=== PATIENT | female | born 1955 | race Caucasian/White ===

== ENCOUNTER → 2017-11-08 16:52 | Outpatient (CLI) | payer OTHER, BC, SELFPAY ==
--- NOTE | 2017-11-08 16:56 | MRI_ITS ---
STUDY: MRI RIGHT KNEE REASON FOR EXAM: Female, 62 years old. Pain after tripping injury October 16, 2017 TECHNIQUE: Standardized fat and water weighted pulse sequences were obtained in all 3 orthogonal planes. COMPARISON: X-ray October 17, 2017. FINDINGS: Normal medial meniscus. Normal hyaline cartilage of the medial femorotibial compartment. Normal medial femoral condyle and tibial plateau. There is a partial sprain of the MCL with interstitial and periligamentous edema, coronal series 6 image 18/37. Normal distal semimembranosus, gracilis and semitendinosus tendons. There is intra-substance myxoid degeneration of the posterior horn of the lateral meniscus, but without a demonstrated meniscal tear. Normal hyaline cartilage of the lateral femorotibial compartment. There is reactive marrow edema of the anterior lateral tibial plateau, series 4 images /24 and /24. Normal proximal tibiofibular articulation. Normal lateral collateral (fibular) ligament. Normal popliteus tendon. Normal biceps femoris tendon. Normal anterior cruciate ligament (ACL). Normal posterior cruciate ligament (PCL). There is arthrosis of the patellofemoral articulation. There is diffuse, full thickness articular cartilage loss of the patellofemoral compartment. Subchondral edema of the posterior patella Normal medial and lateral patellar retinaculum. Normal quadriceps tendon. There is patellar tendinosis with thickening of the distal tendon. Normal Hoffa's fat pad. There is a small volume joint effusion. The soft tissues are unremarkable. The otherwise visualized osseous structures are unremarkable. MRI/Lower Ext Joint Only (Routine) IMPRESSION: Bone bruising of the lateral tibial plateau consistent with recent injury. Medial collateral ligament sprain consistent with recent injury. Patellofemoral degenerative change. No meniscal tear. Joint effusion. Electronically Signed: Faizan Caldwell MD at 8:55 EST , Service support ,
== END ==
PROVIDERS: Family Provider Family Medicine; PCP Family Medicine; Visit Provider Physician Assistant
DX: S80.01XA Contusion of right knee, initial encounter (principal)
CPT/HCPCS: 73721

== ENCOUNTER → 2017-12-13 16:14 | Outpatient (CLI) | payer BC, SELFPAY ==
[2017-12-13 17:32] LABS: Hemoglobin A1c 5.6 % (4.2-6.3)
[2017-12-13 17:35] LABS: ALB/GLOB Ratio 0.9 RATIO (0.9-2.4); AST(SGOT) 21 U/L (15-37); Alanine Aminotransfer ALT/SGPT 27 U/L (13-56); Albumin, Serum 3.6 g/dL (3.2-5.0); Alkaline Phosphatase 103 U/L (45-117); Anion Gap 7 (5-15); BUN 17 mg/dL (7-18); Calcium,Total 8.3 mg/dL (8.5-10.1); Chloride 105 mmol/L (98-107); Creatinine, Serum 0.63 mg/dL (0.55-1.02); EST Glomerular Filtration Rate 103 mL/min (>60); Est Glom Filt Rate - Afr Amer 124 mL/min (>60); Free T3 2.4 pg/mL (2.18-3.98); Globulin 3.8 g/dL (2.2-4.2); Glucose 79 mg/dL (74-106); Potassium 3.9 mmol/L (3.5-5.1); Protein, Total 7.4 g/dL (6.4-8.2); Sodium Level 140 mmol/L (136-145); Thyroid Stim Hormone (TSH) 3.28 uIU/mL (0.358-3.74)
== END ==
PROVIDERS: Family Provider Family Medicine; PCP Family Medicine; Visit Provider Internal Medicine Endocrinology, Diabetes & Metabolism
DX: E89.0 Postprocedural hypothyroidism (principal); R73.03 Prediabetes
CPT/HCPCS: 36415; 80053; 83036; 84439; 84443; 84481

== ENCOUNTER → 2018-02-18 16:19 | Outpatient (CLI) | payer BC, SELFPAY ==
--- NOTE | 2018-02-18 16:31 | RAD_ITS ---
STUDY: X-RAY - ABDOMEN/PELVIS REASON FOR EXAM: Female, 62 years old. Left upper quadrant discomfort. TECHNIQUE: AP COMPARISON: CT dated January 06, 2016 FINDINGS: Normal visualized lung bases. There is an unremarkable bowel gas pattern. There is no demonstrated free abdominal air. The visualized liver, spleen and kidneys are grossly normal in size and morphology. There are phleboliths within the pelvis. Normal soft tissue structures. Normal visualized osseous structures. RAD/Abdomen Single View IMPRESSION: Nonspecific bowel gas pattern. Electronically Signed: Barbi Campa MD at 12:52 EDT Tel , Service support ,
== END ==
PROVIDERS: Family Provider Family Medicine; PCP Family Medicine; Visit Provider Family Medicine
DX: R10.12 Left upper quadrant pain (principal)
CPT/HCPCS: 74018

== ENCOUNTER → 2018-08-27 07:02 | Outpatient (CLI) | payer BC, SELFPAY ==
[2018-08-27 08:34] LABS: Hemoglobin A1c 5.4 % (4.2-6.3)
[2018-08-27 08:37] LABS: ALB/GLOB Ratio 0.8 RATIO (0.9-2.4); AST(SGOT) 17 U/L (15-37); Alanine Aminotransfer ALT/SGPT 30 U/L (13-56); Albumin, Serum 3.3 g/dL (3.2-5.0); Alkaline Phosphatase 96 U/L (45-117); Anion Gap 9 (5-15); BUN 13 mg/dL (7-18); BUN/Creat Ratio 19.8 RATIO (10-20); Calcium,Total 8.2 mg/dL (8.5-10.1); Chloride 106 mmol/L (98-107); Cholesterol 193 mg/dL (200); Creatinine, Serum 0.66 mg/dL (0.55-1.02); EST Glomerular Filtration Rate 98 mL/min (>60); Est Glom Filt Rate - Afr Amer 118 mL/min (>60); Free T3 2.7 pg/mL (2.18-3.98); Globulin 3.9 g/dL (2.2-4.2); Glucose 84 mg/dL (74-106); High Density Lipoprotein 45 mg/dL; Potassium 4.1 mmol/L (3.5-5.1); Protein, Total 7.2 g/dL (6.4-8.2); Sodium Level 143 mmol/L (136-145); T4 Free Direct 1.17 ng/dL (0.76-1.46); Thyroid Stim Hormone (TSH) 4.44 uIU/mL (0.358-3.74); Triglycerides 151 mg/dL; Very Low Density Lipoprotein 30 mg/dL (5-40)
[2018-08-27 09:58] LABS: Vitamin D,25 Hydroxy 23.4 ng/mL (29.95-100.01)
== END ==
PROVIDERS: Family Provider Family Medicine; PCP Family Medicine; Referring Provider Internal Medicine Endocrinology, Diabetes & Metabolism; Visit Provider Internal Medicine Endocrinology, Diabetes & Metabolism
DX: E89.0 Postprocedural hypothyroidism (principal); R73.03 Prediabetes; E55.9 Vitamin D deficiency, unspecified
CPT/HCPCS: 36415; 80053; 80061; 82306; 83036; 84439; 84443; 84481

== ENCOUNTER → 2019-03-21 07:45 | Outpatient (CLI) | payer BC, SELFPAY ==
[2017-12-09 16:16] VITALS: BMI 36.9
[2019-03-21 09:00] LABS: Hemoglobin A1c 5.6 % (4.2-6.3)
[2019-03-21 09:14] LABS: ALB/GLOB Ratio 0.9 RATIO (0.9-2.4); AST(SGOT) 18 U/L (15-37); Alanine Aminotransfer ALT/SGPT 21 U/L (13-56); Albumin, Serum 3.3 g/dL (3.2-5.0); Alkaline Phosphatase 94 U/L (45-117); Anion Gap 8 (5-15); BUN 16 mg/dL (7-18); BUN/Creat Ratio 24.3 RATIO (10-20); Calcium,Total 8.4 mg/dL (8.5-10.1); Chloride 107 mmol/L (98-107); Creatinine, Serum 0.66 mg/dL (0.55-1.02); EST Glomerular Filtration Rate 97 mL/min (>60); Est Glom Filt Rate - Afr Amer 117 mL/min (>60); Free T3 2.9 pg/mL (2.18-3.98); Globulin 3.7 g/dL (2.2-4.2); Glucose 89 mg/dL (74-106); Potassium 4.3 mmol/L (3.5-5.1); Sodium Level 142 mmol/L (136-145); T4 Free Direct 1.51 ng/dL (0.76-1.46); Thyroid Stim Hormone (TSH) 0.31 uIU/mL (0.358-3.74)
== END ==
PROVIDERS: Family Provider Family Medicine; PCP Family Medicine; Referring Provider Internal Medicine Endocrinology, Diabetes & Metabolism; Visit Provider Internal Medicine Endocrinology, Diabetes & Metabolism
DX: E89.0 Postprocedural hypothyroidism (principal); R73.03 Prediabetes
CPT/HCPCS: 36415; 80053; 83036; 84439; 84443; 84481

== ENCOUNTER → 2019-07-31 16:22 | Outpatient (CLI) | payer BC, SELFPAY ==
[2017-12-09 16:16] VITALS: BMI 36.9
[2019-07-31 17:24] LABS: Hemoglobin A1c 5.4 % (4.2-6.3)
[2019-07-31 17:39] LABS: ALB/GLOB Ratio 0.9 RATIO (0.9-2.4); AST(SGOT) 19 U/L (15-37); Alanine Aminotransfer ALT/SGPT 26 U/L (13-56); Albumin, Serum 3.5 g/dL (3.2-5.0); Alkaline Phosphatase 99 U/L (45-117); Anion Gap 6 (5-15); BUN 19 mg/dL (7-18); BUN/Creat Ratio 25.7 RATIO (10-20); Calcium,Total 8.6 mg/dL (8.5-10.1); Chloride 107 mmol/L (98-107); Creatinine, Serum 0.74 mg/dL (0.55-1.02); EST Glomerular Filtration Rate 85 mL/min (>60); Est Glom Filt Rate - Afr Amer 102 mL/min (>60); Globulin 3.8 g/dL (2.2-4.2); Glucose 86 mg/dL (74-106); Potassium 3.7 mmol/L (3.5-5.1); Protein, Total 7.3 g/dL (6.4-8.2); Sodium Level 140 mmol/L (136-145); T4 Free Direct 1.21 ng/dL (0.76-1.46); Thyroid Stim Hormone (TSH) 2.18 uIU/mL (0.358-3.74)
== END ==
PROVIDERS: Referring Provider Internal Medicine Endocrinology, Diabetes & Metabolism; Visit Provider Internal Medicine Endocrinology, Diabetes & Metabolism
DX: E89.0 Postprocedural hypothyroidism (principal)
CPT/HCPCS: 36415; 80053; 83036; 84439; 84443

== ENCOUNTER → 2019-12-19 07:56 | Outpatient (CLI) | payer BC, SELFPAY ==
[2019-09-17 16:00] VITALS: BMI 36.9
[2019-12-19 08:47] LABS: Vitamin D,25 Hydroxy 49.4 ng/mL
[2019-12-19 08:54] LABS: Thyroid Stim Hormone (TSH) 1.27 uIU/mL (0.358-3.74)
[2019-12-21 20:48] LABS: Anti-Thyroglobulin AB < 1.0 IU/mL (0.0-0.9); Thyroglobulin, Serum Qt. 0.3 ng/mL (1.5-38.5)
== END ==
PROVIDERS: Referring Provider Internal Medicine Endocrinology, Diabetes & Metabolism; Visit Provider Internal Medicine Endocrinology, Diabetes & Metabolism
DX: E55.9 Vitamin D deficiency, unspecified (principal); C73 Malignant neoplasm of thyroid gland; E89.0 Postprocedural hypothyroidism
CPT/HCPCS: 36415; 82306; 84432; 84443; 86800

== ENCOUNTER → 2019-12-31 11:56 | Outpatient (CLI) | payer BC, SELFPAY ==
[2019-09-17 16:00] VITALS: BMI 36.9
--- NOTE | 2019-12-31 11:58 | BI_ITS ---
MAMMOGRAPHY - BILATERAL SCREENING REASON FOR EXAM: Female, 64 years old. Routine annual screening examination. PERTINENT HISTORY: Grandmother with breast cancer. TECHNIQUE: Digital bilateral breast elenita (3D mammographic acquisition) in the CC and MLO projections. 2-D mediolateral oblique (MLO) and craniocaudad (CC) views of both breasts were obtained. CAD: Full Field Digital Mammography with Computer Added Detection was performed. COMPARISON: Comparison is made with prior study dated December 13, 2016 and September 27, 2015. FINDINGS: Breast Composition: The breasts are almost entirely fatty. There are no dominant masses or suspicious calcifications. No other significant abnormalities are identified. There has been no significant change since the prior study. BI/SCREEN MAMM (CAD) W/ELENITA BILAT IMPRESSION: Stable bilateral screening mammogram. Yearly follow-up mammogram recommended. (A) ASSESSMENT CATEGORY: BIRADS Category 1: Negative. A letter regarding these results will be sent to the patient by the facility within 30 days. Approximately 10% of breast cancers are not detected by mammography. A normal mammogram should not delay biopsy of a clinically suspicious abnormality. [id number] Electronically Signed: Lino Naik, at 13:56 EDT , Service support ,
--- NOTE | 2019-12-31 12:20 | BD_ITS ---
STUDY: DUAL ENERGY X-RAY ABSORPTIOMETRY / DXA REASON FOR EXAM: Female, 64 years old. 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 COMPARISON: None. FINDINGS: Lumbar Spine (L1-L4): g/cm2 (1.091) / T-score (-0.6) / Z-score (0.7) Findings are suggestive of normal bone density with a low fracture risk. Left Femur Total: g/cm2 (0.979) / T-score (-0.2) / Z-score (0.8) Left Femoral Neck: g/cm2 (1.032) / T-score (0.0) / Z-score (1.3) Right Femur Total: g/cm2 (1.001) / T-score (-0.1) / Z-score (1.0) Right Femoral Neck: g/cm2 (1.002) / T-score (-0.3) / Z-score (1.1) BD/Dexa Bone Density Study IMPRESSION: The patient is considered normal as outlined below according to World Stanley Organization (WHO) criteria with a low fracture risk. Reference Information: The T-score is the number of standard deviations above or below the standard which is normal for young adults at their peak bone mineral density. The World Health Organization (WHO) interprets the T-scores as follows: Above -1 Normal bone density Between -1 and -2.5 Osteopenia Equal to / or below -2.5 Osteoporosis As a practical clinical guideline, osteopenia may be graded as follows: Mild -1 through -1.5 Moderate -1.6 through -2.0 Severe -2.1 through -2.4 The Z-score is the number of standard deviations above or below age-matched controls. A Z-score of less than -1.5 would be considered abnormal. References: 1. NIH Osteoporosis and Related Bone Diseases http://www.osteo.org 2. International Society for Clinical Densitometry http://www.iscd.org 3. National Osteoporosis Foundation http://www.nof.org Electronically Signed: Lino Naik, at 15:18 EDT , Service support ,
== END ==
PROVIDERS: Referring Provider Obstetrics & Gynecology; Visit Provider Obstetrics & Gynecology
DX: Z12.31 Encounter for screening mammogram for malignant neoplasm of breast (principal); Z13.820 Encounter for screening for osteoporosis
CPT/HCPCS: 77063; 77067; 77080

== ENCOUNTER → 2020-06-14 10:08 | Outpatient (CLI) | payer BC, SELFPAY ==
[2019-09-17 16:00] VITALS: BMI 36.9
[2020-06-14 12:36] LABS: ALB/GLOB Ratio 0.9 RATIO (0.9-2.4); AST(SGOT) 18 U/L (15-37); Alanine Aminotransfer ALT/SGPT 21 U/L (13-56); Albumin, Serum 3.5 g/dL (3.2-5.0); Alkaline Phosphatase 100 U/L (45-117); Anion Gap 3 (5-15); BUN 19 mg/dL (7-18); BUN/Creat Ratio 28.1 RATIO (10-20); Calcium,Total 9.1 mg/dL (8.5-10.1); Chloride 110 mmol/L (98-107); Creatinine, Serum 0.68 mg/dL (0.55-1.02); EST Glomerular Filtration Rate 94 mL/min (>60); Est Glom Filt Rate - Afr Amer 113 mL/min (>60); Globulin 3.8 g/dL (2.2-4.2); Glucose 92 mg/dL (74-106); Potassium 4.3 mmol/L (3.5-5.1); Protein, Total 7.3 g/dL (6.4-8.2); Sodium Level 141 mmol/L (136-145)
[2020-06-14 12:38] LABS: Vitamin B12 407 pg/mL (211-911)
[2020-06-14 12:42] LABS: Hemoglobin A1c 5.5 % (3.8-5.6)
[2020-06-20 00:36] LABS: Vitamin B1, Thiamine 165.8 nmol/L (66.5-200.0)
== END ==
PROVIDERS: PCP Family Medicine; Referring Provider Family Medicine; Visit Provider Family Medicine
DX: G62.9 Polyneuropathy, unspecified (principal)
CPT/HCPCS: 36415; 80053; 82607; 83036; 84425

== ENCOUNTER → 2020-09-15 16:36 | Outpatient (CLI) | payer BC, SELFPAY ==
[2020-09-15 15:59] VITALS: BMI 36.8
[2020-09-15 18:27] LABS: T4 Free Direct 1.32 ng/dL (0.76-1.46); Thyroid Stim Hormone (TSH) 0.24 uIU/mL (0.358-3.74)
[2020-09-19 21:33] LABS: Anti-Thyroglobulin AB < 1.0 IU/mL (0.0-0.9); Thyroglobulin, Serum Qt. 0.2 ng/mL (1.5-38.5)
== END ==
PROVIDERS: PCP Family Medicine; Referring Provider Internal Medicine Endocrinology, Diabetes & Metabolism; Visit Provider Internal Medicine Endocrinology, Diabetes & Metabolism
DX: E89.0 Postprocedural hypothyroidism (principal); C73 Malignant neoplasm of thyroid gland
CPT/HCPCS: 36415; 84432; 84439; 84443; 86800

== ENCOUNTER → 2020-12-14 15:46 | Outpatient (CLI) | payer BC, SELFPAY ==
[2020-09-15 15:59] VITALS: BMI 36.8
[2020-12-14 17:56] LABS: Absolute Lymphocyte Count 2.11 X10^3/uL (0.83-4.51); Absolute Neutrophil Count 4.1 X10^3/uL (2.0-7.7); Basophil# 0.04 X10^3/uL; Basophil% 0.6 % (0-1); Eosinophil# 0.03 X10^3/uL; Eosinophils% 0.4 % (0-5); Hematocrit 41.7 % (37-47); Hemoglobin 13.5 g/dL (12.0-15.0); Lymphocyte # 2.11 X10^3/ul (4.0); Lymphocyte % 31.1 % (19-41); Mean Corp Hgb Conc 32.4 g/dL (32-36); Mean Corpuscular Hgb 27.8 pg (27.0-32.0); Mean Platelet Vol. 12.8 fl (6.2-12.0); Monocyte# 0.52 X10^3/uL; Monocyte% 7.7 % (0-10); NRBC Flagged by Analyzer 0 % (0-5); Neutrophil # 4.07 X10^3/uL (2.7-7.7); Neutrophil % 60.1 % (47-70); Platelet Count 213 K/mm3 (150-450); RBC Distribution Width CV 12.9 % (11.6-14.6); RBC Distribution Width SD 40.2 fl (35.1-43.9); Red Blood Count 4.85 M/mm3 (4.2-5.4); White Blood Count 6.8 K/mm3 (4.4-11.0)
[2020-12-14 18:09] LABS: Vitamin B12 465 pg/mL (211-911); Vitamin D,25 Hydroxy 26.7 ng/mL
[2020-12-14 18:25] LABS: AST(SGOT) 20 U/L (15-37); Alanine Aminotransfer ALT/SGPT 25 U/L (13-56); Albumin, Serum 3.6 g/dL (3.2-5.0); Alkaline Phosphatase 95 U/L (45-117); Anion Gap 6 (5-15); BUN 19 mg/dL (7-18); BUN/Creat Ratio 29.4 RATIO (10-20); Calcium,Total 8.6 mg/dL (8.5-10.1); Chloride 106 mmol/L (98-107); Creatinine, Serum 0.65 mg/dL (0.55-1.02); EST Glomerular Filtration Rate 98 mL/min (>60); Est Glom Filt Rate - Afr Amer 119 mL/min (>60); Globulin 3.7 g/dL (2.2-4.2); Glucose 92 mg/dL (74-106); Potassium 3.9 mmol/L (3.5-5.1); Protein, Total 7.3 g/dL (6.4-8.2); Sodium Level 140 mmol/L (136-145); T4 Free Direct 1.45 ng/dL (0.76-1.46); Thyroid Stim Hormone (TSH) 0.26 uIU/mL (0.358-3.74)
== END ==
PROVIDERS: PCP Family Medicine; Referring Provider Family Medicine; Visit Provider Family Medicine
DX: R53.83 Other fatigue (principal)
CPT/HCPCS: 36415; 80053; 82306; 82607; 84439; 84443; 85025

== ENCOUNTER → 2020-12-19 10:42 | Outpatient (CLI) | payer BC, SELFPAY ==
[2020-09-15 15:59] VITALS: BMI 36.8
--- NOTE | 2020-12-19 10:46 | ECHOD_ITS ---
Reason For Study: MV DISORDERS Procedure This was a 2D Doppler, Color Flow transthoracic echocardiogram. Exam performed in department. Left Ventricle Normal LV size. Left ventricular systolic function is normal. The estimated ejection fraction is 55 %. Stage 1 diastolic dysfunction. No regional wall motion abnormalities noted. Right Ventricle Normal RV size. Normal systolic function. Atria The left atrium is mildly enlarged. Normal right atrium. Mitral Valve Posterior leaflet mitral valve prolapse. Mild (1+) mitral valve insufficiency. Tricuspid Valve Normal tricuspid valve. Mild (1+) tricuspid valve insufficiency. Pulmonary artery systolic pressure is 30 mmHg. Aortic Valve Normal aortic valve. Trisinus/trileaflet aortic valve. Pulmonic Valve Normal pulmonic valve. Great Vessels Normal aortic root. The pulmonary artery is normal size. Normal inferior vena cava. Pericardium/Pleural No pericardial effusion. MMode/2D Measurements & Calculations LVIDd: 5.9 cm IVSd: 0.99 cm Ao root diam: 3.3 cm LVIDs: 4.3 cm LVPWd: 1.1 cm RVDd: 3.2 cm FS: 26.5 % LAV(MOD-bp): 113.5 ml LVAd ap4: 32.1 cm2 SV(MOD-sp4): 60.1 ml LAV(MOD-bp) Indexed: 55.1 ml/m2 EDV(MOD-sp4): 105.9 ml LAV(MOD-sp2): 125.9 ml EDV(sp4-el): 108.0 ml LAV(MOD-sp4): 103.4 ml LVAs ap4: 19.6 cm2 ESV(MOD-sp4): 45.8 ml ESV(sp4-el): 46.5 ml EF(MOD-sp4): 56.8 % EF(sp4-el): 56.9 % SV(sp4-el): 61.5 ml LA A4 area: 28.6 cm2 LA dimension(2D): 4.7 cm RA A4 area: 14.6 cm2 Time Measurements MV dec time: 0.23 sec Doppler Measurements & Calculations MV E max jose: 84.3 cm/sec Lat Peak E' Jose: 5.6 cm/sec Med Peak E' Jose: 8.9 cm/sec MV A max jose: 96.6 cm/sec E/E' lat: 15.2 E/E' med: 9.5 MV E/A: 0.87 PA V2 max: 82.9 cm/sec TR max jose: 249.2 cm/sec TR max P.8 mmHg Interpretation Summary Normal LV size. Left ventricular systolic function is normal. The estimated ejection fraction is 55 %. Stage 1 diastolic dysfunction. Posterior leaflet mitral valve prolapse. Mild (1+) mitral valve insufficiency. Ordering Physician: James Lauren Physician: James Lauren Performed By: Leah Kulkarni, TOOTIE, RVT
== END ==
PROVIDERS: PCP Family Medicine; Referring Provider Family Medicine; Visit Provider Family Medicine
DX: I34.1 Nonrheumatic mitral (valve) prolapse (principal)
CPT/HCPCS: 93306

== ENCOUNTER → 2021-05-09 16:50 | Outpatient (CLI) | payer BC, SELFPAY ==
[2020-09-15 15:59] VITALS: BMI 36.8
[2021-05-09 17:59] LABS: Absolute Lymphocyte Count 2.02 X10^3/uL (0.83-4.51); Absolute Neutrophil Count 4.2 X10^3/uL (2.0-7.7); Basophil# 0.03 X10^3/uL; Basophil% 0.5 % (0-1); Eosinophil# 0.04 X10^3/uL; Eosinophils% 0.6 % (0-5); Hematocrit 41.5 % (37-47); Hemoglobin 13.5 g/dL (12.0-15.0); Lymphocyte # 2.02 X10^3/ul (0.83-4.51); Lymphocyte % 30.4 % (19-41); Mean Corp Hgb Conc 32.5 g/dL (32-36); Mean Corpuscular Hgb 28.1 pg (27.0-32.0); Mean Corpuscular Volume 86.5 fL (81-99); Mean Platelet Vol. 12.2 fl (6.2-12.0); Monocyte# 0.38 X10^3/uL; Monocyte% 5.7 % (0-10); NRBC Flagged by Analyzer 0 % (0-5); Neutrophil # 4.15 X10^3/uL (2.7-7.7); Neutrophil % 62.5 % (47-70); Platelet Count 190 K/mm3 (150-450); RBC Distribution Width CV 13.2 % (11.6-14.6); RBC Distribution Width SD 41.5 fl (35.1-43.9); White Blood Count 6.6 K/mm3 (4.4-11.0)
[2021-05-09 18:46] LABS: Vitamin D,25 Hydroxy 41.5 ng/mL
[2021-05-09 18:54] LABS: AST(SGOT) 17 U/L (15-37); Alanine Aminotransfer ALT/SGPT 28 U/L (13-56); Albumin, Serum 3.7 g/dL (3.2-5.0); Alkaline Phosphatase 91 U/L (45-117); Anion Gap 9 (5-15); BUN 22 mg/dL (7-18); BUN/Creat Ratio 34.9 RATIO (10-20); Calcium,Total 8.9 mg/dL (8.5-10.1); Chloride 106 mmol/L (98-107); Creatinine, Serum 0.63 mg/dL (0.55-1.02); EST Glomerular Filtration Rate 101 mL/min (>60); Est Glom Filt Rate - Afr Amer 122 mL/min (>60); Globulin 3.6 g/dL (2.2-4.2); Glucose 97 mg/dL (74-106); Potassium 3.4 mmol/L (3.5-5.1); Protein, Total 7.3 g/dL (6.4-8.2); Sodium Level 140 mmol/L (136-145); T4 Free Direct 1.26 ng/dL (0.76-1.46); Thyroid Stim Hormone (TSH) 0.45 uIU/mL (0.358-3.74)
== END ==
PROVIDERS: PCP Family Medicine; Visit Provider Family Medicine
DX: E03.9 Hypothyroidism, unspecified (principal); E55.9 Vitamin D deficiency, unspecified
CPT/HCPCS: 36415; 80053; 82306; 84439; 84443; 85025

== ENCOUNTER → 2021-05-30 07:22 | Outpatient (CLI) | payer BC, SELFPAY ==
[2021-05-30 08:29] LABS: AST(SGOT) 19 U/L (15-37); Alanine Aminotransfer ALT/SGPT 25 U/L (13-56); Albumin, Serum 3.6 g/dL (3.2-5.0); Alkaline Phosphatase 85 U/L (45-117); Anion Gap 3 (5-15); BUN 16 mg/dL (7-18); BUN/Creat Ratio 26.5 RATIO (10-20); Calcium,Total 8.5 mg/dL (8.5-10.1); Chloride 110 mmol/L (98-107); EST Glomerular Filtration Rate 106 mL/min (>60); Est Glom Filt Rate - Afr Amer 129 mL/min (>60); Globulin 3.5 g/dL (2.2-4.2); Glucose 87 mg/dL (74-106); Protein, Total 7.1 g/dL (6.4-8.2); Sodium Level 140 mmol/L (136-145)
== END ==
PROVIDERS: PCP Family Medicine; Referring Provider Family Medicine; Visit Provider Family Medicine
DX: E87.6 Hypokalemia (principal)
CPT/HCPCS: 36415; 80053

== ENCOUNTER → 2021-06-26 08:00 | Outpatient (CLI) | payer BC, SELFPAY ==
--- NOTE | 2021-06-26 08:12 | VDLE_ITS ---
Reason For Study: Varicose Veins RIGHT LEFT CFV is compressible, spontaneous, phasic, CFV is compressible, spontaneous, phasic, competent and demonstrates normal competent, and demonstrates normal augmentation. augmentation. FV is compressible, spontaneous, phasic, FV is compressible, spontaneous, phasic, competent and demonstrates normal competent and demonstrates normal augmentation. augmentation. POP V is compressible, spontaneous, phasic, POP V is compressible, spontaneous, phasic, competent and demonstrates normal competent and demonstrates normal augmentation. augmentation. T/P Trunk is compressible. T/P Trunk is compressible. PTV is compressible. PTV is compressible. RT PerV is compressible. LT PerV is compressible. SFJ is INCOMPETENT and measures 0.67cm x 0.64 SFJ is INCOMPETENT and measures 0.98cm x 0.94 cm. cm. SSV proximal calf is competent and measures Lt SSV and Lt GSV abesnt s/p EVLA 2017 0.20cm x 0.23 cm. Rt GSV absent s/p vein stripping x 2. Varicose vein at mid calf is dilated and non Procedure compressible consistent with acute SVT. This is a venous duplex using B-mode, color flow and spectral Doppler. Exam performed in department. A preliminary report was called and/or faxed to [facility]. VL/Venous Duplex US - Sathish Extrem Interpretation Summary Bilateral lower extremities with no DVT. Bilateral saphenofemoral junctions wit h reflux noted. Previous right greater saphenous stripping and left greater and lesser saphenou s ablation. Left calf thrombosed varicose veins noted. Ordering Physician: Lion Carrera Referring Physician: Jaqui Lauren Performed By: Ethel Mccracken, TOOTIE, RVT
== END ==
PROVIDERS: PCP Family Medicine; Referring Provider Surgery Vascular Surgery; Visit Provider Surgery Vascular Surgery
DX: I83.893 Varicose veins of bilateral lower extremities with other complications (principal); M79.89 Other specified soft tissue disorders; M79.606 Pain in leg, unspecified
CPT/HCPCS: 93970

== ENCOUNTER → 2021-08-14 16:16 | Outpatient (CLI) | payer BC, SELFPAY ==
[2020-09-15 15:59] VITALS: BMI 36.8
--- NOTE | 2021-08-14 16:18 | BI_ITS ---
MAMMOGRAPHY - BILATERAL SCREENING REASON FOR EXAM: Female, 65 years old. Routine annual screening examination. PERTINENT HISTORY: Grandmother with breast cancer. TECHNIQUE: Digital bilateral breast elenita (3D mammographic acquisition) in the CC and MLO projections. 2-D mediolateral oblique (MLO) and craniocaudad (CC) views of both breasts were obtained. CAD: Full Field Digital Mammography with Computer Added Detection was performed. COMPARISON: Comparison is made with prior study 12/31/2019 and 12/13/2016. FINDINGS: Breast Composition: The breasts are almost entirely fatty. There are no dominant masses or suspicious calcifications. No other significant abnormalities are identified. There has been no significant change since the prior study. BI/SCRN MAMM (CAD)W/ELENITA BILAT IMPRESSION: Stable bilateral screening mammogram. Yearly follow-up mammogram recommended. (A) ASSESSMENT CATEGORY: BIRADS Category 1: Negative. A letter regarding these results will be sent to the patient by the facility within 30 days. Approximately 10% of breast cancers are not detected by mammography. A normal mammogram should not delay biopsy of a clinically suspicious abnormality. [id number] Electronically Signed: Lino Naik MD at 9:18 EST , Service support ,
== END ==
PROVIDERS: PCP Family Medicine; Referring Provider Obstetrics & Gynecology; Visit Provider Obstetrics & Gynecology
DX: Z12.31 Encounter for screening mammogram for malignant neoplasm of breast (principal); Z80.3 Family history of malignant neoplasm of breast
CPT/HCPCS: 77063; 77067

== ENCOUNTER → 2021-09-08 15:50 | Outpatient (CLI) | payer BC, SELFPAY ==
--- NOTE | 2021-09-08 15:53 | RAD_ITS ---
HISTORY: KNEE PAIN. TECHNIQUE: XR Knee Complete 4 Views or More. Number of images including paperwork: 4. COMPARISON: 10/17/2017. FINDINGS: OSSEOUS STRUCTURES: No acute fracture. Mineralization unremarkable. JOINT SPACES: Maintained. No dislocation. RAD/Knee 4 or More Views IMPRESSION: No acute fracture or dislocation identified in the right knee. at 1622 Reported and signed by: Lakisha Fuller MD Electronically Signed: Lakisha Fuller MD at 16:21 EST Tel , Service support ,
--- NOTE | 2021-09-08 15:53 | RAD_ITS ---
HISTORY: KNEE PAIN. TECHNIQUE: XR Knee Complete 4 Views or More. # of images incl. paperwork: 4. COMPARISON: 09/19/2016. FINDINGS: BONES: No acute fracture identified. Mineralization unremarkable. JOINTS: No dislocation. Mild degenerative change of renal compartment joint space narrowing. RAD/Knee 4 or More Views IMPRESSION: No acute fracture or dislocation identified. Degenerative changes in the left knee. at 1621 Reported and signed by: Lakisha Fuller MD Electronically Signed: Lakisha Fuller MD at 16:20 EST Tel , Service support ,
== END ==
PROVIDERS: PCP Family Medicine; Referring Provider Family Medicine; Visit Provider Family Medicine
DX: M25.569 Pain in unspecified knee (principal)
CPT/HCPCS: 73564

== ENCOUNTER → 2021-09-15 16:10 | Outpatient (CLI) | payer BC, SELFPAY ==
[2021-09-15 17:32] LABS: Cholesterol 192 mg/dL (200); High Density Lipoprotein 44 mg/dL; T4 Free Direct 1.31 ng/dL (0.76-1.46); Thyroid Stim Hormone (TSH) 0.44 uIU/mL (0.358-3.74); Triglycerides 232 mg/dL; Very Low Density Lipoprotein 46 mg/dL (5-40)
[2021-09-18 16:20] LABS: Anti-Thyroglobulin AB < 1.0 IU/mL (0.0-0.9); Thyroglobulin, Serum Qt. 0.1 ng/mL (1.5-38.5)
== END ==
PROVIDERS: PCP Family Medicine; Referring Provider Internal Medicine Endocrinology, Diabetes & Metabolism; Visit Provider Internal Medicine Endocrinology, Diabetes & Metabolism
DX: C73 Malignant neoplasm of thyroid gland (principal); E89.0 Postprocedural hypothyroidism; E78.2 Mixed hyperlipidemia
CPT/HCPCS: 36415; 80061; 84432; 84439; 84443; 86800

== ENCOUNTER → 2022-03-02 | Outpatient (CLI) | payer OTHER, SELFPAY ==
[2022-03-02 12:53] LABS: Hemoglobin A1c 5.6 % (3.8-5.6)
== END | disposition home or self-care (01) ==
LOC: BIMLAB 09:12
PROVIDERS: Nurse Practitioner Family; PCP Family Medicine; Referring Provider Internal Medicine Endocrinology, Diabetes & Metabolism; Visit Provider Internal Medicine Endocrinology, Diabetes & Metabolism
DX: E66.9 Obesity, unspecified (principal); R73.03 Prediabetes
CPT/HCPCS: 36415; 83036

== ENCOUNTER → 2022-09-21 | Outpatient (CLI) | payer OTHER, SELFPAY ==
[2022-09-21 15:58] LABS: T4 Free Direct 1.38 ng/dL (0.76-1.46); Thyroid Stim Hormone (TSH) 0.26 uIU/mL (0.358-3.74)
[2022-09-21 16:20] LABS: Vitamin D,25 Hydroxy 24.9 ng/mL
[2022-09-26 14:12] LABS: Anti-Thyroglobulin AB < 1.0 IU/mL (0.0-0.9); Thyroglobulin, Serum Qt. 0.2 ng/mL (1.5-38.5)
== END | disposition home or self-care (01) ==
LOC: BIMLAB 13:05
PROVIDERS: PCP Family Medicine; Referring Provider Internal Medicine Endocrinology, Diabetes & Metabolism; Visit Provider Internal Medicine Endocrinology, Diabetes & Metabolism
DX: E89.0 Postprocedural hypothyroidism (principal); C73 Malignant neoplasm of thyroid gland; E55.9 Vitamin D deficiency, unspecified
CPT/HCPCS: 36415; 82306; 84432; 84439; 84443; 86800

== ENCOUNTER → 2022-12-13 | Outpatient (CLI) | payer OTHER, SELFPAY ==
--- NOTE | 2022-12-13 09:04 | BI_ITS ---
MAMMOGRAPHY - BILATERAL SCREENING REASON FOR EXAM: Female, 67 years old. Routine annual screening examination. PERTINENT HISTORY: Grandmother with breast cancer. TECHNIQUE: Digital bilateral breast elenita (3D mammographic acquisition) in the CC and MLO projections. 2-D mediolateral oblique (MLO) and craniocaudad (CC) views of both breasts were obtained. CAD: Full Field Digital Mammography with Computer Added Detection was performed. COMPARISON: Comparison is made with prior study August 14, 2021 and December 31, 2019. FINDINGS: Breast Composition: The breasts are almost entirely fatty. There are no dominant masses or suspicious calcifications. No other significant abnormalities are identified. There has been no significant change since the prior study. BI/SCRN MAMM (CAD)W/ELENITA BILAT IMPRESSION: Stable bilateral screening mammogram. Yearly follow-up mammogram recommended. (A) ASSESSMENT CATEGORY: BIRADS Category 1: Negative. A letter regarding these results will be sent to the patient by the facility within 30 days. Approximately 10% of breast cancers are not detected by mammography. A normal mammogram should not delay biopsy of a clinically suspicious abnormality. [id number] Electronically Signed: Lino Naik MD at 10:01 EST ,
== END | disposition home or self-care (01) ==
LOC: OPBI 09:02
PROVIDERS: PCP Family Medicine; Visit Provider Family Medicine
DX: Z12.31 Encounter for screening mammogram for malignant neoplasm of breast (principal)
CPT/HCPCS: 77063; 77067

== ENCOUNTER → 2023-01-15 | Outpatient (CLI) | payer MEDICARE, SELFPAY ==
[2023-01-15 15:20] LABS: Absolute Lymphocyte Count 1.98 X10^3/uL (0.83-4.51); Absolute Neutrophil Count 2.7 X10^3/uL (2.0-7.7); Basophil# 0.04 X10^3/uL; Basophil% 0.8 % (0-1); Eosinophil# 0.04 X10^3/uL; Eosinophils% 0.8 % (0-5); Hematocrit 40.9 % (37-47); Hemoglobin 13.1 g/dL (12.0-15.0); Lymphocyte # 1.98 X10^3/ul (0.83-4.51); Lymphocyte % 38.1 % (19-41); Mean Corpuscular Volume 87.4 fL (81-99); Mean Platelet Vol. 12.7 fl (6.2-12.0); Monocyte# 0.44 X10^3/uL; Monocyte% 8.5 % (0-10); NRBC Flagged by Analyzer 0 % (0-5); Neutrophil # 2.69 X10^3/uL (2.7-7.7); Neutrophil % 51.6 % (47-70); Platelet Count 186 K/mm3 (150-450); RBC Distribution Width CV 13.3 % (11.6-14.6); RBC Distribution Width SD 42.6 fl (35.1-43.9); Red Blood Count 4.68 M/mm3 (4.2-5.4); White Blood Count 5.2 K/mm3 (4.4-11.0)
[2023-01-15 15:42] LABS: Vitamin D,25 Hydroxy 28.6 ng/mL
[2023-01-15 15:55] LABS: AST(SGOT) 20 U/L (15-37); Alanine Aminotransfer ALT/SGPT 25 U/L (13-56); Albumin, Serum 3.5 g/dL (3.2-5.0); Alkaline Phosphatase 90 U/L (45-117); Anion Gap 7 (5-15); BUN 11 mg/dL (7-18); Calcium,Total 8.8 mg/dL (8.5-10.1); Chloride 108 mmol/L (98-107); Cholesterol 202 mg/dL (200); Creatinine, Serum 0.52 mg/dL (0.55-1.02); EST Glomerular Filtration Rate 125 mL/min (>60); Est Glom Filt Rate - Afr Amer 151 mL/min (>60); Globulin 3.4 g/dL (2.2-4.2); Glucose 91 mg/dL (74-106); High Density Lipoprotein 46 mg/dL; Potassium 3.9 mmol/L (3.5-5.1); Protein, Total 6.9 g/dL (6.4-8.2); Sodium Level 138 mmol/L (136-145); Triglycerides 155 mg/dL; Very Low Density Lipoprotein 31 mg/dL (5-40)
== END | disposition home or self-care (01) ==
PROVIDERS: PCP Family Medicine; Referring Provider Family Medicine; Visit Provider Family Medicine
DX: E78.5 Hyperlipidemia, unspecified (principal); E55.9 Vitamin D deficiency, unspecified
CPT/HCPCS: 36415; 80053; 80061; 82306; 85025

== ENCOUNTER → 2023-01-22 | Outpatient (CLI) | payer MEDICARE, SELFPAY ==
--- NOTE | 2023-01-22 09:02 | BD_ITS ---
STUDY: DUAL ENERGY X-RAY ABSORPTIOMETRY / DXA REASON FOR EXAM: Female, 67 years old. 627.8Menopausal postmenopausal BONE DENSITY REASON FOR EXAM TECHNIQUE: Bone Mineral Density (BMD) measurements of lumbar spine and bilateral hips were obtained. COMPARISON: Comparison is made with prior examination dated December 31, 2019. FINDINGS: Lumbar Spine (L1-L4): g/cm2 (0.922) / T-score (-1.2) / Z-score (0.6) Findings are suggestive of osteopenia with a low fracture risk. Left Femur Total: g/cm2 (0.884) / T-score (-0.5) / Z-score (0.8) Left Femoral Neck: g/cm2 (0.795) / T-score (-0.5) / Z-score (1.0) Right Femur Total: g/cm2 (0.990) / T-score (0.4) / Z-score (1.6) Right Femoral Neck: g/cm2 (0.866) / T-score (0.1) / Z-score (1.7) The T-Scores on the most recent prior examination were: Lumbar Spine (L1-L4): There has been worsening of bone density since the previous examination. Left Femur Total: which represents a worsening of 3.2%. Right Femur Total: which represents an improvement of 5.9%. BD/Dexa Bone Density Study IMPRESSION: The patient is considered osteopenic as outlined below according to World [employer] Organization (WHO) criteria with a low fracture risk. There has been worsening of bone density since the previous examination. Reference Information: The T-score is the number of standard deviations above or below the standard which is normal for young adults at their peak bone mineral density. The World Health Organization (WHO) interprets the T-scores as follows: Above -1 Normal bone density Between -1 and -2.5 Osteopenia Equal to / or below -2.5 Osteoporosis As a practical clinical guideline, osteopenia may be graded as follows: Mild -1 through -1.5 Moderate -1.6 through -2.0 Severe -2.1 through -2.4 The Z-score is the number of standard deviations above or below age-matched controls. A Z-score of less than -1.5 would be considered abnormal. References: 1. NIH Osteoporosis and Related Bone Diseases www osteo.org 2. International Society for Clinical Densitometry www iscd.org 3. National Osteoporosis Foundation www nof.org Electronically Signed: Lino Naik MD at 13:51 EDT ,
== END | disposition home or self-care (01) ==
PROVIDERS: PCP Family Medicine; Referring Provider Family Medicine; Visit Provider Family Medicine
DX: Z78.0 Asymptomatic menopausal state (principal)
CPT/HCPCS: 77080

== ENCOUNTER → 2023-03-14 | Outpatient (CLI) | payer MEDICARE, SELFPAY ==
[2023-03-14 12:53] LABS: ALB/GLOB Ratio 0.9 RATIO (0.9-2.4); AST(SGOT) 22 U/L (15-37); Alanine Aminotransfer ALT/SGPT 26 U/L (13-56); Albumin, Serum 3.6 g/dL (3.2-5.0); Alkaline Phosphatase 100 U/L (45-117); Anion Gap 7 (5-15); BUN 16 mg/dL (7-18); BUN/Creat Ratio 23.1 RATIO (10-20); Calcium,Total 9.2 mg/dL (8.5-10.1); Chloride 108 mmol/L (98-107); Creatinine, Serum 0.69 mg/dL (0.55-1.02); EST Glomerular Filtration Rate 90 mL/min (>60); Est Glom Filt Rate - Afr Amer 109 mL/min (>60); Globulin 4.2 g/dL (2.2-4.2); Glucose 82 mg/dL (74-106); Potassium 3.8 mmol/L (3.5-5.1); Protein, Total 7.8 g/dL (6.4-8.2); Sodium Level 139 mmol/L (136-145); Vitamin D,25 Hydroxy 67.3 ng/mL
== END | disposition home or self-care (01) ==
LOC: MTLAB 10:19
PROVIDERS: PCP Family Medicine; Referring Provider Family Medicine; Visit Provider Family Medicine
DX: E55.9 Vitamin D deficiency, unspecified (principal)
CPT/HCPCS: 36415; 80053; 82306

== ENCOUNTER → 2023-03-26 | Outpatient (CLI) | payer MEDICARE, SELFPAY ==
--- NOTE | 2023-03-26 08:53 | US_ITS ---
EXAM: US ABDOMEN LIMITED, RIGHT UPPER QUADRANT CLINICAL INDICATION: RUQ PAIN TECHNIQUE: Real-time ultrasound of the right upper quadrant with image documentation. COMPARISON: No relevant prior studies available. FINDINGS: LIVER: Increased echogenicity of the hepatic parenchyma. No intrahepatic biliary ductal dilation. GALLBLADDER: Unremarkable. No shadowing gallstone. No gallbladder wall thickening is demonstrated. No pericholecystic fluid. Negative sonographic Rosas''s sign. COMMON BILE DUCT: 5 mm. The proximal common bile duct is within normal limits for the patient''s age. PANCREAS: Unremarkable as visualized. No focal abnormality is demonstrated in the pancreas. No pancreatic ductal dilatation. RIGHT KIDNEY: Unremarkable. There is no hydronephrosis. No shadowing calculus. No focal lesion or perinephric collection is demonstrated. US/Abdomen Limited IMPRESSION: No acute findings in the right upper quadrant. Fatty infiltration of the liver. Electronically Signed: Bernard Lopez MD at 10:25 EDT ,
== END | disposition home or self-care (01) ==
LOC: US 08:52
PROVIDERS: PCP Family Medicine; Referring Provider Family Medicine; Visit Provider Family Medicine
DX: R10.11 Right upper quadrant pain (principal)
CPT/HCPCS: 76705

== ENCOUNTER → 2023-07-04 | Outpatient (CLI) | payer MEDICARE, SELFPAY ==
[2023-07-04 10:12] LABS: Absolute Neutrophil Count 3.3 X10^3/uL (2.0-7.7); Basophil# 0.04 X10^3/uL; Basophil% 0.7 % (0-1); Eosinophil# 0.08 X10^3/uL; Eosinophils% 1.4 % (0-5); Hematocrit 42.8 % (37-47); Hemoglobin 13.5 g/dL (12.0-15.0); Mean Corp Hgb Conc 31.5 g/dL (32-36); Mean Corpuscular Hgb 28.1 pg (27.0-32.0); Mean Platelet Vol. 11.9 fl (6.2-12.0); Monocyte% 7.1 % (0-10); NRBC Flagged by Analyzer 0 % (0-5); Neutrophil # 3.29 X10^3/uL (2.7-7.7); Neutrophil % 58.4 % (47-70); Platelet Count 197 K/mm3 (150-450); RBC Distribution Width CV 13.3 % (11.6-14.6); RBC Distribution Width SD 43.7 fl (35.1-43.9); Red Blood Count 4.81 M/mm3 (4.2-5.4); White Blood Count 5.6 K/mm3 (4.4-11.0)
[2023-07-04 10:52] LABS: Vitamin D,25 Hydroxy 45.4 ng/mL
[2023-07-04 11:35] LABS: ALB/GLOB Ratio 0.9 RATIO (0.9-2.4); AST(SGOT) 22 U/L (15-37); Alanine Aminotransfer ALT/SGPT 28 U/L (13-56); Albumin, Serum 3.4 g/dL (3.2-5.0); Alkaline Phosphatase 90 U/L (45-117); Anion Gap 5 (5-15); BUN 12 mg/dL (7-18); BUN/Creat Ratio 18.3 RATIO (10-20); Calcium,Total 8.6 mg/dL (8.5-10.1); Chloride 110 mmol/L (98-107); Cholesterol 188 mg/dL (200); Creatinine, Serum 0.66 mg/dL (0.55-1.02); EST Glomerular Filtration Rate 96 mL/min (>60); Est Glom Filt Rate - Afr Amer 116 mL/min (>60); Globulin 3.8 g/dL (2.2-4.2); Glucose 94 mg/dL (74-106); High Density Lipoprotein 48 mg/dL; Potassium 4.1 mmol/L (3.5-5.1); Protein, Total 7.2 g/dL (6.4-8.2); Sodium Level 141 mmol/L (136-145); T4 Free Direct 1.31 ng/dL (0.76-1.46); Thyroid Stim Hormone (TSH) 0.34 uIU/mL (0.358-3.74); Triglycerides 173 mg/dL; Very Low Density Lipoprotein 35 mg/dL (5-40)
== END | disposition home or self-care (01) ==
LOC: MFPLAB 09:21
PROVIDERS: PCP Family Medicine; Visit Provider Family Medicine
DX: E03.9 Hypothyroidism, unspecified (principal); M85.80 Other specified disorders of bone density and structure, unspecified site; K76.0 Fatty (change of) liver, not elsewhere classified; E78.5 Hyperlipidemia, unspecified
CPT/HCPCS: 36415; 80053; 80061; 82306; 84439; 84443; 85025

== ENCOUNTER → 2023-07-25 | Outpatient (CLI) | payer MEDICARE, SELFPAY ==
--- NOTE | 2023-07-25 10:55 | RAD_ITS ---
INDICATION: pain, fall EXAMINATION/TECHNIQUE: X-RAY - BILATERAL XR Ribs Bilateral 3 Views COMPARISON: None. FINDINGS: No acute fracture or malalignment. Chronic lung changes. No blastic or lytic lesions. Tortuous and calcified thoracic aorta. The heart is borderline enlarged. The soft tissues are unremarkable. RAD/Ribs Bilat 3V No CXR IMPRESSION: No acute radiographic abnormalities. Chronic lung changes. Electronically Signed: Tono Yoo MD at 18:23 EDT ,
== END | disposition home or self-care (01) ==
LOC: MTRAD 10:55
PROVIDERS: PCP Family Medicine; Referring Provider Family Medicine; Visit Provider Family Medicine
DX: R07.81 Pleurodynia (principal)
CPT/HCPCS: 71110

== ENCOUNTER → 2023-08-05 | Outpatient (CLI) | payer MEDICARE, SELFPAY ==
--- NOTE | 2023-08-05 09:25 | US_ITS ---
STUDY: ABDOMINAL ULTRASOUND - RIGHT UPPER QUADRANT REASON FOR VISIT: Female, 67 years old fatty liver TECHNIQUE: Ultrasound evaluation of the right upper quadrant was performed with real-time and static ta-scale imaging. TECHNICAL QUALITY: Adequate. COMPARISON: Comparison is made with prior study dated March 26, 2023. FINDINGS: Liver: The liver measures 13.7 cm. There is increased echogenicity consistent with a mild degree of fatty infiltration. The bile ducts are within normal limits. There is hepatic color flow. The direction of portal flow is hepatopetal. There is no demonstrated mass lesion. Gallbladder: Normal distended gallbladder. The gallbladder wall measures 2.0 mm. There is a negative sonographic Rosas''s sign. There is no pericholecystic fluid. There are no gallstones. Common Bile Duct (C.B.D.): The common bile duct measures 4.3 mm. Pancreas: There is nonvisualization of the pancreas due to overlying bowel gas. Right Kidney: Normal size of the right kidney. The right kidney measures 11 cm x 5.5 cm x 4.6 cm. Normal renal cortex. The right cortex measures 1.4 cm. There is no demonstrated renal mass or cyst. There is no right hydronephrosis. IMPRESSION: Mild degree of fatty infiltration of the liver. Electronically Signed: Lino Naik MD at 15:02 EDT , STUDY: ABDOMINAL ULTRASOUND - ELASTOGRAPHY REASON FOR VISIT: Female, 67 years old. Fatty infiltration of the liver. TECHNIQUE: Liver stiffness measurements were obtained on a Serveron 85 ultrasound machine using a CA 1-7 probe following the SRU guidelines. 3 measurements were obtained using a 2-D-SWE method. TheIQR/M was 13% suggesting a quality data set. TECHNICAL QUALITY: Adequate. COMPARISON: None. FINDINGS: Liver: There is no demonstrated mass lesion. Median liver stiffness measured 6.2 kPa. Abdomen: There is no demonstrated mass lesion. US/Abdomen Limited IMPRESSION: Liver stiffness measures 6.2 kPa compatible with F2-F3 (Mild to moderate liver fibrosis) Metavir score. Electronically Signed: Lino Naik MD at 15:03 EDT ,
== END | disposition home or self-care (01) ==
LOC: US 09:23
PROVIDERS: PCP Family Medicine; Referring Provider Family Medicine; Visit Provider Family Medicine
DX: K76.0 Fatty (change of) liver, not elsewhere classified (principal)
CPT/HCPCS: 76705; 76981

== ENCOUNTER → 2023-09-23 | Outpatient (CLI) | payer MEDICARE, SELFPAY ==
[2023-09-23 12:53] LABS: Thyroid Stim Hormone (TSH) 0.52 uIU/mL (0.358-3.74)
[2023-09-23 14:06] LABS: Hemoglobin A1c 5.2 % (3.8-5.6)
[2023-09-24 16:10] LABS: Anti-Thyroglobulin AB < 1.0 IU/mL (0.0-0.9); Thyroglobulin, Serum Qt. 0.1 ng/mL (1.5-38.5)
== END | disposition home or self-care (01) ==
LOC: BIMLAB 09:18
PROVIDERS: PCP Family Medicine; Referring Provider Internal Medicine Endocrinology, Diabetes & Metabolism; Visit Provider Internal Medicine Endocrinology, Diabetes & Metabolism
DX: R73.03 Prediabetes (principal); C73 Malignant neoplasm of thyroid gland; E89.0 Postprocedural hypothyroidism
CPT/HCPCS: 36415; 83036; 84432; 84439; 84443; 86800

== ENCOUNTER → 2023-10-17 | Outpatient (CLI) | payer MEDICARE, SELFPAY ==
[2023-10-17 13:45] LABS: Absolute Neutrophil Count 3.9 X10^3/uL (2.0-7.7); Basophil# 0.03 X10^3/uL; Basophil% 0.5 % (0-1); Eosinophil# 0.04 X10^3/uL; Eosinophils% 0.6 % (0-5); Hematocrit 42.7 % (37-47); Hemoglobin 14.2 g/dL (12.0-15.0); Lymphocyte % 30.4 % (19-41); Mean Corp Hgb Conc 33.3 g/dL (32-36); Mean Corpuscular Hgb 28.3 pg (27.0-32.0); Mean Corpuscular Volume 85.1 fL (81-99); Mean Platelet Vol. 11.6 fl (6.2-12.0); Monocyte# 0.41 X10^3/uL; Monocyte% 6.5 % (0-10); NRBC Flagged by Analyzer 0 % (0-5); Neutrophil # 3.87 X10^3/uL (2.7-7.7); Neutrophil % 61.8 % (47-70); Platelet Count 214 K/mm3 (150-450); RBC Distribution Width CV 13.1 % (11.6-14.6); RBC Distribution Width SD 40.6 fl (35.1-43.9); Red Blood Count 5.02 M/mm3 (4.2-5.4); White Blood Count 6.3 K/mm3 (4.4-11.0)
[2023-10-17 14:22] LABS: ALB/GLOB Ratio 0.9 RATIO (0.9-2.4); AST(SGOT) 22 U/L (15-37); Alanine Aminotransfer ALT/SGPT 24 U/L (13-56); Albumin, Serum 3.5 g/dL (3.2-5.0); Alkaline Phosphatase 91 U/L (45-117); Anion Gap 6 (5-15); BUN 13 mg/dL (7-18); BUN/Creat Ratio 18.7 RATIO (10-20); Calcium,Total 9.2 mg/dL (8.5-10.1); Chloride 107 mmol/L (98-107); Creatinine, Serum 0.69 mg/dL (0.55-1.02); EST Glomerular Filtration Rate 90 mL/min (>60); Est Glom Filt Rate - Afr Amer 109 mL/min (>60); Globulin 3.9 g/dL (2.2-4.2); Glucose 89 mg/dL (74-106); Magnesium 2.2 mg/dL (1.6-2.6); Potassium 3.9 mmol/L (3.5-5.1); Protein, Total 7.4 g/dL (6.4-8.2); Sodium Level 141 mmol/L (136-145)
== END | disposition home or self-care (01) ==
PROVIDERS: PCP Family Medicine; Referring Provider Internal Medicine Cardiovascular Disease; Visit Provider Internal Medicine Cardiovascular Disease
DX: R06.09 Other forms of dyspnea (principal); I49.3 Ventricular premature depolarization
CPT/HCPCS: 36415; 80053; 83735; 84443; 85025

== ENCOUNTER → 2023-11-12 | Outpatient (CLI) | payer MEDICARE, SELFPAY ==
--- NOTE | 2023-11-12 06:57 | ECHOD_ITS ---
Reason For Study: COLON Procedure This was a 2D Doppler, Color Flow transthoracic echocardiogram. Exam performed in department. Left Ventricle Normal size and thickness. The left ventricular ejection fraction is 60 %. Diastolic function is indeterminate. Right Ventricle Normal right ventricle. Atria The left atrium is severely enlarged. Normal right atrium. Mitral Valve Significant prolapse of the posterior mitral valve leaflet. Moderate mitral valve regurgitation. Recommend cardiac MRI or ISAIAS for further evaluation. Tricuspid Valve Trivial tricuspid valve insufficiency. Normal pulmonary artery pressure. Aortic Valve Aortic sclerosis, no stenosis. Pulmonic Valve The pulmonic valve is not well visualized. Great Vessels Mildly dilated aortic root. Pericardium/Pleural No pericardial effusion. MMode/2D Measurements & Calculations LVIDd: 6.2 cm IVSd: 1.1 cm Ao root diam: 3.8 cm LVIDs: 4.5 cm LVPWd: 1.1 cm RVDd: 3.0 cm FS: 26.5 % LAV(MOD-bp): 112.6 ml LVAd ap4: 39.0 cm2 LVAd ap2: 31.5 cm2 LAV(MOD-bp) Indexed: 53.2 ml/m2 LVLd ap4: 8.9 cm LVLd ap2: 8.0 cm LAV(MOD-sp2): 117.0 ml EDV(MOD-sp4): 148.0 ml EDV(MOD-sp2): 103.6 ml LAV(MOD-sp4): 100.2 ml EDV(sp4-el): 144.7 ml EDV(sp2-el): 104.8 ml LVAs ap4: 25.5 cm2 LVAs ap2: 19.6 cm2 LVLs ap4: 7.7 cm LVLs ap2: 6.4 cm ESV(MOD-sp4): 72.5 ml ESV(MOD-sp2): 50.7 ml ESV(sp4-el): 72.3 ml ESV(sp2-el): 51.0 ml EF(MOD-sp4): 51.0 % EF(MOD-sp2): 51.1 % EF(sp4-el): 50.0 % SV(MOD-sp4): 75.5 ml SV(MOD-sp2): 52.9 ml SV(sp4-el): 72.4 ml LA dimension(2D): 5.3 cm LA A4 area: 29.4 cm2 RA A4 area: 16.0 cm2 TAPSE: 2.8 cm Time Measurements MV dec time: 0.25 sec Doppler Measurements & Calculations MV E max jose: 92.4 cm/sec Lat Peak E' Jose: 6.9 cm/sec Med Peak E' Jose: 7.9 cm/sec MV A max jose: 110.1 cm/sec E/E' lat: 13.5 E/E' med: 11.7 MV E/A: 0.84 MV V2 max: 124.0 cm/sec MV P1/2t max jose: 110.2 cm/sec Ao V2 max: 136.8 cm/sec MV max P.1 mmHg MV P1/2t: 80.2 msec Ao max P.5 mmHg MV V2 mean: 79.7 cm/sec MV dec slope: 402.2 cm/sec2 Ao V2 mean: 95.5 cm/sec MV mean P.8 mmHg Ao mean P.0 mmHg MV V2 VTI: 32.5 cm MVA(P1/2t): 2.7 cm2 Ao V2 VTI: 29.1 cm AV (velocity ratio): 0.86 LV V1 max: 118.0 cm/sec MR max jose: 585.4 cm/sec PA V2 max: 110.4 cm/sec LV V1 max P.6 mmHg MR max P.1 mmHg PA V2 mean: 79.1 cm/sec LV V1 mean P.8 mmHg LV V1 mean: 77.4 cm/sec LV V1 VTI: 24.9 cm TR max jose: 239.4 cm/sec TR max P.9 mmHg ECHO/Echo Complete Interpretation Summary The left ventricular ejection fraction is 60 %. Diastolic function is indeterminate. The left atrium is severely enlarged. Significant prolapse of the posterior mitral valve leaflet. Moderate mitral stevie ve regurgitation. Recommend cardiac MRI or ISAIAS for further evaluation. Mildly dilated aortic root. Ordering Physician: Lien Treviño Referring Physician: James Lauren Performed By: Leah Kulkarni RDCS, RVT
--- OUTSIDE RECORDS SUMMARY | 2023-11-12 06:58 | XMS RPT_ITS | CCD ---
Author Name Unknown Address [address] [place] [address] Organization [facility] Care Team Providers Care Patient Accounting Representative Name Role Phone KAELYN FOREMAN Consulting Unavailable ARTURO WHITFIELD JR Attending Unavailable ARTURO WHITFIELD JR Primary Care Unavailable ARTURO WHITFIELD JR Admitting Unavailable PROVIDER, UNKNOWN Consulting Unavailable PROVIDER, UNKNOWN Consulting Unavailable Kaelyn Foreman MD Primary Care Provider TOMASA PIZANO Attending Unavailable KAELYN FOREMAN Primary Care Unavailable CATHLEEN SILVA Attending Unavailable KAELYN FOREMAN Primary Care Unavailable KAELYN FOREMAN Primary Care Unavailable TOMASA PIZANO Attending Unavailable Allergies Allergy Classification Reported Allergen(s) Allergy Type Date of Onset Reaction(s) Facility (2 sources) Cephalexin; Translations: [CEPHALEXIN] Drug Allergy 3 Itching [facility] (2 sources) Seasonal allergy; Translations: [SEASONAL ALLERGIES] Allergy to substance 4 Itching, Other: See Comments [facility] Medications Completed/Discontinued Medications Medication Drug Class(es) Dates Sig (Normalized) Sig (Original) aspirin 81 mg oral tablet (1 source) Platelet Aggregation Inhibitor, Nonsteroidal Anti-inflammatory Drug take 1 capsule by mouth once daily aspirin 81 mg cap Take 81 mg by mouth once daily. 0 Active Problems Problem Classification Problem Date Documented Date Episodic/Chronic Cancer of thyroid (1 source) Malignant tumor of thyroid gland; Translations: [Malignant neoplasm of thyroid gland] 10-22-2005 Chronic Cancer of thyroid (1 source) History of malignant neoplasm of thyroid; Translations: [Personal history of malignant neoplasm of thyroid] 08-24-2023 Episodic Complications of surgical procedures or medical care (1 source) Postoperative hypothyroidism; Translations: [Postprocedural hypothyroidism] Onset: 5 07-25-2015 Chronic Other diseases of kidney and ureters (1 source) Secondary hyperparathyroidism; Translations: [Secondary hyperparathyroidism of renal origin] Onset: 0 11-28-2009 Chronic Other screening for suspected conditions (not mental disorders or infectious disease) (1 source) Patient encounter status; Translations: [Encounter for screening for malignant neoplasm of colon] 08-24-2023 Episodic Prolapse of female genital organs (2 sources) Uterovaginal prolapse, unspecified; Translations: [Cystocele, midline] Onset: 3 Chronic Rehabilitation care; fitting of prostheses; and adjustment of devices (1 source) Encounter for fitting and adjustment of other specified devices; Translations: [Encounter for fitting and adjustment of pessary] Onset: 3 Chronic Results Test Name Value Interpretation Reference Range Facil ity Vital Signs Date Time Vital Sign Value Performing Clinician Faci lity 08-23-2023 16:01-0500 Body height 165.1 cm Cathleen Silva MD Work Phone: [facility] 08-23-2023 16:01-0500 Body temperature 96.91 [degF] Cathleen Silva MD Work Phone: [facility] 08-23-2023 16:01-0500 Body weight 105.05 kg Cathleen Silva MD Work Phone: [facility] 08-23-2023 16:01-0500 Diastolic blood pressure 82 mm[Hg] Cathleen Silva MD Work Phone: [facility] 08-23-2023 16:01-0500 Heart rate 80 /min Cathleen Silva MD Work Phone: [facility] 08-23-2023 16:01-0500 SaO2% (BldA) [Mass fraction] 98 % Cathleen Silva MD Work Phone: [facility] 08-23-2023 16:01-0500 Systolic blood pressure 116 mm[Hg] Cathleen Silva MD Work Phone: [facility] Encounters Encounter Date Encounter Type Care Provider Facility Start: 09-26-2023 End: 09-27-2023 ambulatory TOMASA PIZANO Facility:[facility] Start: 08-23-2023 End: 08-24-2023 ambulatory CATHLEEN SILVA Facility:[facility] Start: 08-23-2023 End: 08-24-2023 Patient encounter procedure Cathleen Silva MD Work Phone: General Surgery Procedures Date Procedure Procedure Detail Performing Clinician Start: 02-04-2016 Lipid 1996 panel - S juan c or Plasma Cathleen Silva MD Work Phone: Plan of Treatment Date Care Activity Detail Author Start: 06-07-2023 Covid-19 Vaccine () Covid-19 Vaccine () [facility] Start: 2022 Advance Directive Discussion Advance Directive Discussion [facility] Start: 2022 Bone Density Screening Bone Density Screening [facility] Start: 2022 Pneumococcal Vaccine: 65+ (2 - PCV) Pneumococcal Vaccine: 65+ (2 - PCV) [facility] Start: 10-07-2022 Depression Assessment Depression Assessment [facility] Start: 02-03-2021 Lipid 1996 panel - Serum or Plasma Lipid Screening [facility] Start: 09-18-2016 Diabetes Screening Diabetes Screening [facility] Start: 01-05-2014 Mammography Mammogram Screening [facility] Start: 2002 Cologuard (FIT-DNA) Cologuard (FIT-DNA) [facility] Start: 2002 Colonoscopy Colonoscopy [facility] Start: 2002 Colorectal Cancer Screening Colorectal Cancer Screening [facility] Start: [address] Colonography [facility] Start: 2002 Fecal Occult Blood Fecal Occult Blood [facility] Start: 2002 Sigmoidoscopy Sigmoidoscopy [facility] Start: 1976 Urine microalbumin profile DTaP,Tdap,Td Vaccine (1 - Tdap) [facility] Start: 1975 Annual PCP Team Chronic Disease Visit Annual PCP Team Chronic Disease Visit [facility] Start: 1975 Hepatitis C Screening Hepatitis C Screening [facility] Start: 1975 HIV Screening HIV Screening [facility] End: 08-23-2024 Screening colonoscopy COLONOSCOPY SCREENING Endoscopy Routine Screening for colon cancer 1 Occurrences starting 08/23/2023 until 08/23/2024 [facility] Work Phone: Immunizations Immunization Date Immunization Notes Care Provider Neeraj elliott 07-17-2023 respiratory syncytia l virus (RSV) vaccine, adjuvanted (AREXVY) Cathleen Silva MD Work Phone: [facility] 07-17-2023 zoster vaccine recombinant Cathleen Silva MD Work Phone: [facility] 07-04-2023 influenza, seasonal, injectable Cathleen Silva MD Work Phone: [facility] 07-30-2022 influenza, injectabl e, quadrivalent, preservative free Cathleen Silva MD Work Phone: [facility] 08-07-2021 influenza, seasonal, injectable Cathleen Silva MD Work Phone: [facility] 06-13-2020 influenza, injectabl e, quadrivalent, preservative free Cathleen Silva MD Work Phone: [facility] 10-11-2018 zoster vaccine recombinant Cathleen Silva MD Work Phone: [facility] 01-19-2018 pneumococcal polysaccharide vaccine, 23 valent Cathleen Silva MD Work Phone: [facility] 01-19-2018 zoster vaccine recombinant Cathleen Silva MD Work Phone: [facility] 07-31-2017 influenza, seasonal, injectable Cathleen Silva MD Work Phone: [facility] 07-02-2013 influenza, seasonal, injectable Cathleen Silva MD Work Phone: [facility] Payers Date Payer Category Payer Medicare MMO MEDICARE MMO [employer] O [id number] 2022-Present [phone] [address] [place] [address] O [id number] 2022 Unknown [id number] 1955 Unknown [id number] Private Health Insurance [id number] Social History Date Type Detail Facility Start: 08-10-2011 Tobacco smoking stat [facility] Never smoked tobacco [facility] Work Phone: Start: 08-10-2011 Tobacco use and exposure Smokeless tobacco non-user [facility] Work Phone: Start: 08-23-2023 Alcohol intake Current drinke r of alcohol (finding) [facility] Start: 08-08-2023 End: 08-23-2023 History of Social function [facility] Start: 08-08-2023 End: 08-23-2023 Tobacco use panel [facility] National Score (1-100), lower number is lower risk 47 [facility] Start: 1955 Sex Assigned At Not on file [facility] Progress note 09-26-2023 Note Date & Type Note Facility 09-26-2023 Note HNO ID: [id number] Author: Tomasa Pizano APRN.CNP Service: ? Author Type: Nurse Practitioner Type: Progress Notes Filed: 09/26/2023 2:30 PM Note Text: Shirt Sewer offered: Patient declines. PESSARY FITTING NOTE Bria Cabral is a 67 year old who presents for a pessary fitting. General: Well appearing, alert, in no acute distress, well-hydrated, well nourished. Pelvic: Ext. Genitalia: No lesions or other abnormalities Vagina: lesions no Cervix: Normal Urethra: Normal Bimanual: Normal size anteverted uterus Prolapse Noted: Yes Final fitting pessary selected: Ring with support 3 Vaginal sweep: A digital sweep of the vaginal canal was performed by Tomasa Pizano APRN.CNP and it was ascertained that no instruments or other foreign bodies are retained within the cavity. PESSARY FITTING PROCEDURE SUMMARY: Patient tolerated procedure well: Yes Patient able to remove and replace pessary without difficulty: No The patient reported no discomfort and the pessary stayed in placed with ambulating and using the restroom: Yes Patient was able to remove and replace the pessary without difficulty: No HOME GOING PESSARY PLACEMENT: Final fitting pessary selected:Ring with support 3 PLAN: Pessary will need ordered Will call pt when ring is available Tomasa Pizano APRN.CNP [facility] Progress note 08-23-2023 Note Date & Type Note Facility 08-23-2023 Note HNO ID: [id number] Author: Cathleen Silva MD Service: ? Author Type: Physician Type: Progress Notes Filed: 08/24/2023 5:59 PM Note Text: HISTORY AND PHYSICAL Bria Cabral 1955 REFERRING PHYSICIAN: No ref. provider found CHIEF COMPLAINT: Consult (Colonoscopy) HPI: The patient is a 67 year old female referred for endoscopy. Bria notes no history of colon complaints. The patient denies blood in stools, denies abdominal pain, and denies changes in bowel habits. The patient notes no colon cancer in immediate family. The patient has had previous colonoscopy 2004. She does note PONV She has history of thyroid cancer PAST MEDICAL HISTORY Diagnosis Date Heart murmur 09/03/2014 Hyperparathyroidism (HCC) Malignant neoplasm of thyroid gland (HCC) Post-surgical hypothyroidism PAST SURGICAL HISTORY Procedure Laterality Date APPENDECTOMY 10/07/2000 ARTHROTOMY W/MENISCUS REPAIR KNEE Left DANDC, DIAG AND/OR THERAPEUTIC 07/2015 LIG/TRNSXJ FLP TUBE ABDL/VAG APPR UNI/BI PAST SURGICAL HISTORY OF Bilateral 08/07/1980 R varicose veins S BALLOON,UTERINE ABLATION [id number] 07/2015 THYROIDECTOMY TOTAL/COMPLETE 12/30/2001 total for cancer Current Outpatient Medications Medication Sig aspirin 81 mg cap Take 81 mg by mouth once daily. levothyroxine (SYNTHROID) 200 mcg tablet Take 1/2 pill on Sundays, AND 1 pill per day on all other days, total 6.5 pills per week omega-3 fatty acids 1,000 mg cap Take 2 capsules by mouth twice daily. (Patient taking differently: Take 2 g by mouth as needed.) CALCIUM CARBONATE (CALCIUM 600 ORAL) Take 1 tablet by mouth twice daily. CHOLECALCIFEROL (VITAMIN D3) 5,000 UNIT TAB 1 per day multivitamin (MULTIPLE VITAMINS) ORAL Tab Take one(1) tablet daily. peg 3350-Electrolytes (GOLYTELY) 236-22.74-6.74 -5.86 gram suspension Take 4,000 mL by mouth one time only for 1 dose. Refer to printed prep instructions from your provider. No current facility-administered medications for this visit. ALLERGIES: Cephalexin and Seasonal Allergies PERSONAL HISTORY: Social History Tobacco Use Smoking status: Never Smokeless tobacco: Never Vaping Use Vaping Use: Never used Substance Use Topics Alcohol use: Yes Comment: rare Drug use: Never FAMILY HISTORY Problem Relation Age of Onset Kidney failure Mother other (liver failure) Mother Stroke Father Kidney failure Brother Breast Cancer Maternal Grandmother 58 Lung Cancer Maternal Grandfather Diabetes Paternal Grandmother Diabetes Paternal Grandfather Diabetes Maternal Aunt Breast Cancer Other cousin The review of systems data was entered by the nurse and reviewed by me Nursing Notes: Vickie RoblesADRIANA 08/23/2023 4:02 PM Signed REVIEW OF SYSTEMS: General: The patient denies fatigue, denies weight loss, denies weight gain, denies feeling hot, and denies feelings of cold. Eyes: The patient denies glaucoma, denies eye injury/surgery, does not wear glasses or contacts. Ear/Nose/Throat: The patient NOTES allergies, denies hayfever, denies ear infections, and denies bloody noses. Cardiovascular: The patient denies chest pain, denies heart disease, denies high blood pressure,denies cardiac stent, denies prior heart attack, NOTES irregular heart beat, denies high cholesterol, denies poor circulation, denies heart failure, other cardiac issues, denies claudication, denies cold feet, denies peripheral arterial stent. Respiratory: The patient denies tuberculosis, denies pneumonia, denies frequent cough, denies pulmonary embolism, denies shortness of breath, and denies coughing up blood. Gastrointestinal: The patient denies difficulty swallowing, denies acid reflux, denies ulcers, denies vomiting, denies jaundice/hepatitis, denies gallbladder problems, denies black or tarry stools, denies hemorrhoids, denies bleeding from rectum, denies diverticulitis, denies constipation, denies diarrhea, denies loss of stool control, and denies hernias. Kidney/Bladder: The patient denies kidney stones, denies urine infections, and denies bloody urine. Skin: The patient denies a history of skin cancer, denies bleeding/changing moles, and denies a history of skin rash. Neurologic: The patient denies a history of epilepsy/convulsions, denies headaches, denies head/spinal injuries, and denies stroke/TIA. Psychiatric: The patient denies psychiatric medications, denies depression, and denies voices, denies substance abuse. Endocrine: The patient NOTES thyroid disorders, denies diabetes, and denies hormonal problems. Hematologic: The patient denies a history of bruising, denies bleeding, and denies anemia, denies blood clots. Infections: The patient denies a history of measles and mumps, denies rheumatic fever, and denies sexually transmitted diseases. Musculoskeletal: The patient NOTES back pain/injury, NOTES back problems, denies sciatica, NOTES knee/foot trouble, NOTES arthr (more content not included)... [facility] History of Present illness Narrative 08-23-2023 Cathleen Silva MD - 08/23/2023 4:14 PM EST Note Date & Type Note Facility 08-23-2023 History of Presen t illness Narrative HISTORY AND PHYSICAL Bria Cabral 1955 REFERRING PHYSICIAN: No ref. provider found CHIEF COMPLAINT: Consult (Colonoscopy) HPI: The patient is a 67 year old female referred for endoscopy. Bria notes no history of colon complaints. The patient denies blood in stools, denies abdominal pain, and denies changes in bowel habits. The patient notes no colon cancer in immediate family. The patient has had previous colonoscopy 2004. She does note PONV She has history of thyroid cancer PAST MEDICAL HISTORY Diagnosis Date Heart murmur 09/03/2014 Hyperparathyroidism (HCC) Malignant neoplasm of thyroid gland (HCC) Post-surgical hypothyroidism PAST SURGICAL HISTORY Procedure Laterality Date APPENDECTOMY 10/07/2000 ARTHROTOMY W/MENISCUS REPAIR KNEE Left D&C, DIAG AND/OR THERAPEUTIC 07/2015 LIG/TRNSXJ FLP TUBE ABDL/VAG APPR UNI/BI PAST SURGICAL HISTORY OF Bilateral 08/07/1980 R varicose veins S BALLOON,UTERINE ABLATION [id number] 07/2015 THYROIDECTOMY TOTAL/COMPLETE 12/30/2001 total for cancer Current Outpatient Medications Medication Sig aspirin 81 mg cap Take 81 mg by mouth once daily. levothyroxine (SYNTHROID) 200 mcg tablet Take 1/2 pill on Sundays, & 1 pill per day on all other days, total 6.5 pills per week omega-3 fatty acids 1,000 mg cap Take 2 capsules by mouth twice daily. (Patient taking differently: Take 2 g by mouth as needed.) CALCIUM CARBONATE (CALCIUM 600 ORAL) Take 1 tablet by mouth twice daily. CHOLECALCIFEROL (VITAMIN D3) 5,000 UNIT TAB 1 per day multivitamin (MULTIPLE VITAMINS) ORAL Tab Take one(1) tablet daily. peg 3350-Electrolytes (GOLYTELY) 236-22.74-6.74 -5.86 gram suspension Take 4,000 mL by mouth one time only for 1 dose. Refer to printed prep instructions from your provider. No current facility-administered medications for this visit. ALLERGIES: Cephalexin and Seasonal Allergies PERSONAL HISTORY: Social History Tobacco Use Smoking status: Never Smokeless tobacco: Never Vaping Use Vaping Use: Never used Substance Use Topics Alcohol use: Yes Comment: rare Drug use: Never FAMILY HISTORY Problem Relation Age of Onset Kidney failure Mother other (liver failure) Mother Stroke Father Kidney failure Brother Breast Cancer Maternal Grandmother 58 Lung Cancer Maternal Grandfather Diabetes Paternal Grandmother Diabetes Paternal Grandfather Diabetes Maternal Aunt Breast Cancer Other cousin The review of systems data was entered by the nurse and reviewed by me Nursing Notes: Vickie Robles LPN 08/23/2023 4:02 PM Signed REVIEW OF SYSTEMS: General: The patient denies fatigue, denies weight loss, denies weight gain, denies feeling hot, and denies feelings of cold. Eyes: The patient denies glaucoma, denies eye injury/surgery, does not wear glasses or contacts. Ear/Nose/Throat: The patient NOTES allergies, denies hayfever, denies ear infections, and denies bloody noses. Cardiovascular: The patient denies chest pain, denies heart disease, denies high blood pressure,denies cardiac stent, denies prior heart attack, NOTES irregular heart beat, denies high cholesterol, denies poor circulation, denies heart failure, other cardiac issues, denies claudication, denies cold feet, denies peripheral arterial stent. Respiratory: The patient denies tuberculosis, denies pneumonia, denies frequent cough, denies pulmonary embolism, denies shortness of breath, and denies coughing up blood. Gastrointestinal: The patient denies difficulty swallowing, denies acid reflux, denies ulcers, denies vomiting, denies jaundice/hepatitis, denies gallbladder problems, denies black or tarry stools, denies hemorrhoids, denies bleeding from rectum, denies diverticulitis, denies constipation, denies diarrhea, denies loss of stool control, and denies hernias. Kidney/Bladder: The patient denies kidney stones, denies urine infections, and denies bloody urine. Skin: The patient denies a history of skin cancer, denies bleeding/changing moles, and denies a history of skin rash. Neurologic: The patient denies a history of epilepsy/convulsions, denies headaches, denies head/spinal injuries, and denies stroke/TIA. Psychiatric: The patient denies psychiatric medications, denies depression, and denies voices, denies substance abuse. Endocrine: The patient NOTES thyroid disorders, denies diabetes, and denies hormonal problems. Hematologic: The patient denies a history of bruising, denies bleeding, and denies anemia, denies blood clots. Infections: The patient denies a history of measles and mumps, denies rheumatic fever, and denies sexually transmitted diseases. Musculoskeletal: The patient NOTES back pain/injury, NOTES back problems, denies sciatica, NOTES knee/foot trouble, NOTES arthritis, or denies gout. When was patient's last Mammogram screening? 2022 Last Colonoscopy: 2004 Vickie Robles LPN PHYSICAL EXAMINATION: General: The patient is 67 year old female, well nourished, well hydrated in no acute distress. The patient is oriented to time, place, and person. VITALS: Blood pressure 116/82, pulse 80, temperature 36.1 C (96.9 F), height 165.1 cm (5' 5 ), weight 105.1 kg (231 lb 9.6 oz), SpO2 98 %. Body mass index is 38.54 kg/m . Head: Normal cephalic, atraumatic Eyes: pupils are equally round, sclera are clear/anicteric Neck is supple with no tracheal deviation Cardiac: normal heart sounds, regular Respiratory: normal breath sounds, normal respiratory excursion and pattern. Abdominal exam: benign Extremities: no clubbing, cyanosis or edema. Neuro: non focal Psych: normal mood Assessment IMPRESSION: screening for colon cancer PLAN: I have discussed the above with the patient. I have offered colonoscopy , possible biopsies I have explained the procedure to the patient. I have counseled the patient as to the risks of the procedure, including but not limited to: infection, bleeding, injury to any intrabdominal organs such as liver/spleen, perforation of the GI tract, inability to complete the procedure, complications of anesthesia, etc. - the patient understands. The patient wishes to proceed. I have answered all questions to the patient s satisfaction and the patient has no further questions. My clinic staff has educated the patient as to the colon cleansing regimen and I have prescribed Golytely for the colon cleansing solution. The patient will be scheduled for the procedure at [facility]. Diagnoses: (Z12.11) Screening for colon cancer (primary encounter diagnosis) I have confirmed and edited as necessary, the PFSH and ROS obtained by others. Consultation requested by Sharda Reed for an opinion regarding patient's screening for colon ancer. My final recommendations will be communicated back to the requesting physician by way of shared Medical record or letter to requesting physician via US mail. Medical Decision Making: Risk: Low: Low risk from testing/treatment Medical Decision Making Level: 2 - Straightforward Cathleen Silva MD documented in this encounter [facility] Instructions 08-23-2023 Patient Instructions Note Date & Type Note Facility 08-23-2023 Instructions Cathleen Silva MD - 08/23/2023 4:09 PM EST Images from the original note were not included. Bowel Preparation Instructions for: Golytely, Nulytely, Trilyte or Colyte (polyethylene glycol 3350 and electrolytes) IF YOU DO NOT FOLLOW THESE DIRECTIONS, YOUR COLONOSCOPY WILL BE CANCELLED. [place] Instructions: Your bowel must be empty so that your doctor can clearly view your colon. Follow all of the instructions in this handout EXACTLY as they are written. Do NOT eat any solid food the ENTIRE day before your colonoscopy. Drink only clear liquids. Buy your bowel preparation at least 5 days before your colonoscopy. TRANSPORTATION on the Day of Your Exam A responsible person MUST be present with you at Check In prior to your colonoscopy and REMAIN in the endoscopy area until you are discharged. You are NOT ALLOWED to drive, take a taxi or bus, or leave [facility]. If you do not have a responsible fence post driver (family member or friend) with you to take you home, your exam cannot be done with sedation and will be cancelled. Please bring a list of all of your current medications, including any Over-the Counter medications with you. Medications If you take insulin, diabetic medications or blood thinners such as Coumadin (warfarin), Plavix (clopidogrel), Ticlid (ticlopidine hydrochloride), Agrylin (anagrelide), Xarelto (Rivaroxaban), Pradaxa (Dabigatran), Eliquis (Apixaban), and Effient (Prasugrel). You MUST call the doctors who orders those medicines for instructions on altering the dosage before your colonoscopy. All other medications should be taken the day of the exam with a sip of water including ASPIRIN. Five (5) Days Before Your Colonoscopy Do NOT take medicines that stop diarrhea - such as Imodium, Kaopectate, or Pepto Bismol. Do NOT take fiber supplements - such as Metamucil, Citrucel, or Perdiem. Do NOT take products that contain iron - such as multi-vitamins (the label lists what is in the products). Do NOT take Vitamin E. Buy the prescription bowel preparation solution at your local pharmacy or drugstore pharmacy. 09/2019 Bowel Preparation Instructions for: Golytely, Nulytely, Trilyte or Colyte (polyethylene glycol 3350 and electrolytes) Three (3) Days Before Your Colonoscopy Do NOT eat high-fiber foods - such as popcorn, beans, seeds (flax, sunflower, quinoa), multigrain bread, nuts, salad/vegetables, or fresh and dried fruit. One (1) Day Before Your Colonoscopy Only drink clear liquids the ENTIRE DAY before your colonoscopy. Do NOT eat any solid foods. Drink at least 8 ounces of clear liquids every hour after waking up. The clear liquids you can drink include: Clear Liquid (NO RED LIQUIDS) DO NOT DRINK Gatorade, Pedialyte or Powerade Clear broth or bouillon Coffee or tea (no milk or non-dairy creamer) Carbonated and non-carbonated soft drinks Ymnor-Aid or other fruit flavored drinks Strained fruit juices (no pulp) Jell-O, popsicles, hard candy Water Alcohol Milk or non-dairy creamers Noodles or vegetables in soup Juice with pulp Liquid you cannot see through Do not use tobacco/vaping products The bowel preparation solution will be consumed in two parts. Mix the solution the evening before your colonoscopy and refrigerate before drinking. You may add the flavor pack that came with the bowel preparation. Do NOT add ice, sugar or any other flavorings to the solution. Part 1 At 6:00 PM - Evening before your colonoscopy Drink an 8-oz glass of bowel preparation every 10 minutes for a total of 8 glasses. You may continue to drink clear liquids until midnight. Part 2 On the day of your colonoscopy you may drink clear liquids up to (three) 3 hours before your procedure. 4 1/2 hours before your colonoscopy Drink an 8-oz glass of bowel preparation every 10 minutes for a total of 8 glasses. Fifteen (15) minutes later, drink an 8-oz glass of clear liquids every 15 minutes for a total of 2 glasses. You may continue to drink clear liquids up to (three) 3 hours before your exam. 2 09/2019 documented in this encounter [facility] Nurse Note 08-23-2023 Vickie Robles LPN - 08/23/2023 3:59 PM EST Note Date & Type Note Facility 08-23-2023 Nurse Note REVIEW OF SYSTEMS: General: The patient denies fatigue, denies weight loss, denies weight gain, denies feeling hot, and denies feelings of cold. Eyes: The patient denies glaucoma, denies eye injury/surgery, does not wear glasses or contacts. Ear/Nose/Throat: The patient NOTES allergies, denies hayfever, denies ear infections, and denies bloody noses. Cardiovascular: The patient denies chest pain, denies heart disease, denies high blood pressure,denies cardiac stent, denies prior heart attack, NOTES irregular heart beat, denies high cholesterol, denies poor circulation, denies heart failure, other cardiac issues, denies claudication, denies cold feet, denies peripheral arterial stent. Respiratory: The patient denies tuberculosis, denies pneumonia, denies frequent cough, denies pulmonary embolism, denies shortness of breath, and denies coughing up blood. Gastrointestinal: The patient denies difficulty swallowing, denies acid reflux, denies ulcers, denies vomiting, denies jaundice/hepatitis, denies gallbladder problems, denies black or tarry stools, denies hemorrhoids, denies bleeding from rectum, denies diverticulitis, denies constipation, denies diarrhea, denies loss of stool control, and denies hernias. Kidney/Bladder: The patient denies kidney stones, denies urine infections, and denies bloody urine. Skin: The patient denies a history of skin cancer, denies bleeding/changing moles, and denies a history of skin rash. Neurologic: The patient denies a history of epilepsy/convulsions, denies headaches, denies head/spinal injuries, and denies stroke/TIA. Psychiatric: The patient denies psychiatric medications, denies depression, and denies voices, denies substance abuse. Endocrine: The patient NOTES thyroid disorders, denies diabetes, and denies hormonal problems. Hematologic: The patient denies a history of bruising, denies bleeding, and denies anemia, denies blood clots. Infections: The patient denies a history of measles and mumps, denies rheumatic fever, and denies sexually transmitted diseases. Musculoskeletal: The patient NOTES back pain/injury, NOTES back problems, denies sciatica, NOTES knee/foot trouble, NOTES arthritis, or denies gout. When was patient's last Mammogram screening? 2022 Last Colonoscopy: 2004 Vickie Robles LPN documented in this encounter [facility] Progress note 08-08-2023 Note Date & Type Note Facility 08-08-2023 Note HNO ID: [id number] Author: Tomasa Pizano APRN.PHLEBOTOMY TECHNICIAN Service: ? Author Type: Nurse Practitioner Type: Progress Notes Filed: 08/08/2023 12:45 PM Note Text: Shirt Sewer offered: Patient declines. Bria is a 67 year old No obstetric history on file. who presents for an annual gynecologic exam with complaints, of prolapse that is starting to bother her more . Causes trouble with completely emptying the bladder. Postmenopausal: Yes since age 60 HRT use: No. Last Pap: normal 2019 HPV: negative 2019 History of abnormal pap: No Last mammogram: 2022 normal History of abnormal mammogram: No Sexually active: Yes Pain with intercourse: No Postcoital bleeding: No Hot flashes: Yes, occasional Night sweats: No Vaginal dryness: No OB History No obstetric history on file. 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 History Comments: Sexual Activity: Yes; Male Contraception: Tubal Ligation PAST MEDICAL HISTORY Diagnosis Date Heart murmur 09/03/14 Malignant neoplasm of thyroid gland (HCC) PAST SURGICAL HISTORY Procedure Laterality Date APPENDECTOMY 2000 LIG/TRNSXJ FLP TUBE ABDL/VAG APPR UNI/BI PAST SURGICAL HISTORY OF 08/07/80 R varicose veins THYROIDECTOMY TOTAL/COMPLETE 12/30/01 total for cancer FAMILY HISTORY Problem Relation Age of Onset Kidney failure Mother other (liver failure) Mother Stroke Father Kidney failure Brother Breast Cancer Maternal Grandmother Lung Cancer Maternal Grandfather Diabetes Paternal Grandmother Diabetes Paternal Grandfather Diabetes Maternal Aunt Breast Cancer Other cousin SOCIAL HISTORY Social History Tobacco Use Smoking status: Never Smokeless tobacco: Never Vaping Use Vaping Use: Never used Substance Use Topics Alcohol use: Yes Comment: rare Drug use: Never REVIEW OF SYSTEMS Abdomen: No abdominal pain, nausea, vomiting, diarrhea, or constipation. No bloating, early satiety, indigestion, or increased flatulence. Bladder: No dysuria, gross hematuria, urinary frequency, urinary urgency, or incontinence. + Reports prolapse, trouble completely emptying Breast: No breast lumps, nipple d/c, overlying skin changes, redness or skin retraction Allergies and current medication updated:Yes EXAM: BP 128/90 Ht 5' 5 (1.65m) Wt 234 lb (106.1kg) BMI 38.94 kg/(m2). GENERAL: pleasant, female in no apparent distress HEENT: Normocephalic, atraumatic, mucus membranes moist, and no lesions NECK: Supple, full range of motion, no adenopathy, and thyroid normal DERMATOLOGY: Normal, without lesions, non-icteric, and non-hirsute BREAST: soft, non-tender, symmetric, no dominant mass, normal nipple-areolar complex, no lymphadenopathy, and no nipple discharge CHEST: Normal inspiratory effort ABDOMEN: soft, non-tender, and no masses PELVIC: external genitalia normal, normal Bartholin's glands, urethra, Randalia's glands, no vulvar lesions, no cervical lesions, good vaginal support, physiologic discharge present, normal appearing perineal body and perianal region. + cystocele and + uterovaginal prolapse BIMANUAL: uterus normal size, shape and consistency, no adnexal masses, and non-tender RECTOVAGINAL: deferred. NEURO: alert and oriented x3,exam grossly non-focal EXTREMITIES: normal ASSESSMENT/PLAN: 1) Health maintenance: Pap done with HPV. (If normal, last pap). Mammogram ordered. Mammogram done 2022. Nutrition, exercise and routine health maintenance exams reviewed. Calcium/Vitamin D supplementation information provided. Colon cancer screening: patient to discuss with PCP 2) Follow up one year or sooner as needed 3. Colon cancer screening - ICD9: V76.51, ICD10: Z12.11 - CONSULT TO GENERAL SURGERY 4. Cystocele, midline - ICD9: 618.01, ICD10: N81.11 - 1st to 2nd degree - Causing incomplete emptying - Discussed pelvic floor therapy vs pessary vs surgery - Patient would like to try pessary - Plan for fitting 6. Uterovaginal prolapse - ICD9: 618.4, ICD10: N81.4 -1st degree Had BMD screening in 2022 through PCP. Taking Vitamin D and calcium supplementation. Diastolic blood pressure elevated. Recommend follow up with PCP. Sharda Reed APRN.ASHISH Pizano APRN.ASHISH [facility] Evaluation note Note Date & Type Note Facility documented in this encounter [facility] Reason for referral (narrative) Outpatient Procedure (Routine) - Pending Review Note Date & Type Note Facility Referral ID Status Reason Start Date Expiration Date Visits Requested Visits Authorized [id number] Pending Review Auto-Generat ed Referral 3 08/23/2024 1 1 [facility] Summary Purpose Family History No Family History Records FoundNo Family History Records Found Advance Directives No Advanced Directives Records FoundNo Advanced Directives Records Found Additional Source Comments INFORMATION SOURCE (unrecogn ized section and content) DATE CREATED AUTHOR AUTHOR'S ORGANIZ ATION 10/02/2023 [facility] Source Comments (unrecognize d section and content) In the event this informatio n is protected by the Federal Confidentiality of Alcohol and Drug Abuse Patient Records regulations: The Federal rules restrict any use of the information to criminally investigate or prosecute any alcohol or drug abuse patient.[facility] Reason for Visit (unrecogniz ed section and content) Specialty Diagnoses / Procedures Referred By Tony rey Referred To Contact General Surgery Diagnoses Colon cancer screening Procedures CONSULT TO GENERAL SURGERY OFFICE/OUTPATIENT [facility] 60-74 MINUTES Sharda Reed APRN.PHLEBOTOMY TECHNICIAN [address] [place] [address] Referral ID Status Reason Start Date Expiration Date V isits Requested Visits Authorized [id number] Closed PCP Requested Referral 08/08/2023 08/07/2024 1 1 Care Teams (unrecognized sec tion and content) FOR RECORDS PERTAINING TO PATIENTS WHO ARE OR HAVE BEEN ENROLLED IN A CHEMICAL DEPENDENCY/SUBSTANCEABUSE PROGRAM, SOME INFORMATION MAY BE OMITTED. This clinical summary was aggregated from multiple sources. Caution should be exercised in using it in the provision of clinical care. This summary normalizes information from multiple sources, and as a consequence, information in this document may materially change the coding, format and clinical context of patient data. In addition, data may be omitted in some cases. CLINICAL DECISIONS SHOULD BE BASED ON THE PRIMARY CLINICAL RECORDS. [employer] provides no warranty or guarantee of the accuracy or completeness of information in this document.
--- NOTE | 2023-11-12 12:01 | STRESSREP_ITS ---
Stress Test Report Date: 11/12/2023 Procedure: Exercise tolerance test/imaging study Indications: Dyspnea on exertion Consent: Per the patient Procedure: The patient exercised on a Manuel protocol for 5 minutes and 45 seconds achieving a peak heart rate of 139 bpm (90% predicted maximal heart rate) with a peak blood pressure 168/90 mmHg and a peak MET capacity of 7.0 METs. The baseline ECG demonstrated sinus rhythm with frequent PVCs. The peak exercise ECG demonstrated no ischemic changes. Frequent PVCs pretest, during exercise and posttest. No runs.. The functional capacity was considered average. There was no complaint of chest discomfort during exercise or recovery. The examination was discontinued secondary to target heart rate being achieved. The patient was injected with 14.5 mCi of technetium 99m Cardiolite and subsequently rest SPECT Cardiolite nuclear imaging was obtained in the horizontal long, vertical long, and short axis views. Post-exercise, the patient was injected with 44.2 mCi of technetium 99m Cardiolite and subsequently stress SPECT Cardiolite nuclear imaging was obtained in the horizontal long, vertical long, and short axis views. A gated Cardiolite study at peak stress was obtained. Rest and stress SPECT Cardiolite nuclear imaging status post realignment, normalization, and attenuation correction, demonstrates small reversible perfusion defect of the basal septum that may suggest ischemia. There is end systolic thickening and brightening. The gated Cardiolite study demonstrates myocardial thickening and inward wall motion. The reported LVEF is 59%. Impression: 1. Technically adequate (percent predicted maximal heart rate greater than 85%) exercise tolerance test 2. Peak exercise ECG with no ischemic changes 3. Frequent PVCs at baseline, during the test and during recovery. No runs. 4. Rest and stress SPECT Cardiolite nuclear imaging demonstrate small basal septal defect suggestive of ischemia. 5. The gated Cardiolite study reports an LVEF of 59%. This note was generated with [employer] software. It may contain incorrect words, spelling, and punctuation that were not noted in checking the note before signing.
== END | disposition home or self-care (01) ==
LOC: CVS 06:56
PROVIDERS: PCP Family Medicine; Referring Provider Internal Medicine Cardiovascular Disease; Visit Provider Internal Medicine Cardiovascular Disease
DX: I49.3 Ventricular premature depolarization (principal); I47.29 Other ventricular tachycardia; R06.09 Other forms of dyspnea; R94.31 Abnormal electrocardiogram [ECG] [EKG]; I10 Essential (primary) hypertension; I47.19 Other supraventricular tachycardia
CPT/HCPCS: 78452; 93017; 93306; A9500; A4216

== ENCOUNTER 2023-11-27 08:14 | Day surgery (SDC) | payer MEDICARE, SELFPAY ==
--- NOTE | 2023-11-13 15:13 | HP.PCM_ITS ---
History and Physical Date of Admission: 11/26/23 This is a 68-year-old female who presents for a cardiac catheterization, following an abnormal stress test. She has history of sleep apnea. Recently her sleep medicine doctor noticed her to have irregular heart rhythm. Subsequently 7-day event monitoring was done. It showed episodes of atrial tachycardia. Couple of runs of nonsustained ventricular tachycardia were also noted. Patient denies any symptoms of palpitations. No lightheadedness or dizziness. No syncope or presyncope. No chest pain either at rest or with exertion. She does complain of some shortness of breath walking uphill. No orthopnea. No PND. Occasional ankle edema. Patient occasionally indulges in caffeine pills. Also energy drinks. Intake Vital Signs See EMR Allergies See EMR Medications See EMR PFS Medical History Arthritis Contusion of right knee Encounter for screening for malignant neoplasm of colon Gastrocnemius muscle strain H/O malignant neoplasm of thyroid Hypothyroidism Irregular heart beat Knee pain Left knee pain Left leg pain Obesity Osteoarthritis of left knee Postoperative hypothyroidism Pre-diabetes PVCs (premature ventricular contractions) Thyroid carcinoma Thyroid disease Vitamin D deficiency Surgical History H/O knee surgery Hx of appendectomy Hx of thyroidectomy Varicose veins of both lower extremities Family History Father CVA (cerebral vascular accident) Paroxysmal atrial fibrillationBrother Heart valve replacedMother Hypertension Heart disease Social History Smoking Status: Never smoker alcohol intake: current alcohol intake frequency: holidays/special occasions only substance use type: does not use caffeine: Yes (energy drinks) what type of physical activity do you participate in: none ROS Const Const: Positive for daytime sleepiness and difficulty sleeping; Negative for fatigue, weakness, headache(s), frequent falls or excessive sweating Eyes Eyes: Negative for loss of peripheral vision, transient loss of vision, blurry vision, double vision or tunnel vision ENT ENT: Negative for headache(s), dizziness, Nosebleed/epistaxis or balance problems Cardio Chest Pain: No Palpitations: No Edema: Left (d/t arthritis in knee) Muscle aches with walking: None Resp Respiratory: Positive for SOB with activity; Negative for SOB at rest, SOB orthopnea\SOB lying down, Cough or paroxysmal nocturnal dyspnea GI GI: Negative nausea, vomiting, heartburn or black,tarry stools : Negative for hematuria Musc Musc: Negative for muscle aches/ myalgia, muscle weakness, joint pain or balance problems Skin Skin: Negative non-healing lesions, rash or unusual bruising Neuro Neuro: Negative for dizziness, lightheadedness, near syncope, syncope, frequent falls, headache(s), weakness, blurry vision, double vision or lack of coordination Drew Hematologic/Lymphatic: Negative for easy bleeding or easy bruising Endo Endo: Negative for fatigue, excessive sweating or increased thirst/drinking Psych Psych: Negative for anxiety or depression Allergy Allergy/Immunology: Negative for hives and Negative for rash Cardiology Exam Const Appearance: comfortable and no acute distress Nutritional Appearance: well nourished Neck Neck: no JVD Carotids: Negative bruit Chest Auscultation: Bilateral: Clear to Auscultation Cardio Rate: regular rate Rhythm: regular rhythm Heart sounds: S1 normal and S2 normal 2/6 systolic murmur at apex and base. Neuro General: patient alert, patient awake and patient oriented x3 Extremities Lower Extremity Edema: None: Bilateral Supplemental Info Supplemental Information Stress test 11/12/2023: Procedure: Exercise tolerance test/imaging study Indications: Dyspnea on exertion Consent: Per the patient Procedure: The patient exercised on a Manuel protocol for 5 minutes and 45 seconds achieving a peak heart rate of 139 bpm (90% predicted maximal heart rate) with a peak blood pressure 168/90 mmHg and a peak MET capacity of 7.0 METs. The baseline ECG demonstrated sinus rhythm with frequent PVCs. The peak exercise ECG demonstrated no ischemic changes. Frequent PVCs pretest, during exercise and posttest. No runs.. The functional capacity was considered average. There was no complaint of chest discomfort during exercise or recovery. The examination was discontinued secondary to target heart rate being achieved. The patient was injected with 14.5 mCi of technetium 99m Cardiolite and subsequently rest SPECT Cardiolite nuclear imaging was obtained in the horizontal long, vertical long, and short axis views. Post-exercise, the patient was injected with 44.2 mCi of technetium 99m Cardiolite and subsequently stress SPECT Cardiolite nuclear imaging was obtained in the horizontal long, vertical long, and short axis views. A gated Cardiolite study at peak stress was obtained. Rest and stress SPECT Cardiolite nuclear imaging status post realignment, normalization, and attenuation correction, demonstrates small reversible perfusi on defect of the basal septum that may suggest ischemia. There is end systolic thickening and brightening. The gated Cardiolite study demonstrates myocardial thickening and inward wall motion. The reported LVEF is 59%. Impression: 1. Technically adequate (percent predicted maximal heart rate greater than 85%) exercise tolerance test 2. Peak exercise ECG with no ischemic changes 3. Frequent PVCs at baseline, during the test and during recovery. No runs. 4. Rest and stress SPECT Cardiolite nuclear imaging demonstrate small basal septal defect suggestive of ischemia. 5. The gated Cardiolite study reports an LVEF of 59%. Echocardiogram 11/12/2023: Interpretation Summary The left ventricular ejection fraction is 60 %. Diastolic function is indeterminate. The left atrium is severely enlarged. Significant prolapse of the posterior mitral valve leaflet. Moderate mitral valve regurgitation. Recommend cardiac MRI or ISAIAS for further evaluation. Mildly dilated aortic root. ECHOCARDIOGRAM 12/19/20: Interpretation Summary Normal LV size. Left ventricular systolic function is normal. The estimated ejection fraction is 55 %. Stage 1 diastolic dysfunction. Posterior leaflet mitral valve prolapse. Mild (1+) mitral valve insufficiency. 7 DAY EVENT MONITOR 08/2723-09/09/23: FINDINGS SUMMARY - Predominant rhythm: NSR - Atrial Tachycardia (AT) 18 episodes, Longest 15 beats @ Avg 115 bpm up to 160 bpm, Fastest 6 beats @Avg 146 bpm up to 183 bpm - Ventricular Tachycardia (VT) 433 episodes, Longest/Fastest 12 beats @ Avg 132 bpm up to 165 bpm - Accelerated Idioventricular Rhythm (AIVR) - Ectopic Atrial Rhythm (EAR) - Sinus P-wave terminal delay was observed; consider left atrial disease - Junctional Escape Beats (DAMIÁN) - PAC <0.1% - PVC 8% BLOOD FLOW SCREENING 11/30/22: INTERPRETATION SUMMARY Normal carotid artery screening (0-15% narrowing). Normal aortic ultrasound exam. The ankle/ branchial index is normal (1.0 or greater). Labs: LDL Cholesterol 105 mg/dL (0-130) HDL Cholesterol 48 mg/dL (40-) Cholesterol 188 mg/dL (200) Triglycerides 173 mg/dL (-199) Assessment and Plan Assessment and Plan (1) Nonsustained ventricular tachycardia: Status: Chronic Plan: Patient has a history of nonsustained ventricular tachycardia. She is asymptomatic at this time. Her most recent stress test from 11/12/2023 was abn ormal. Would like to proceed with a cardiac catheterization to further assess this. Depending on results, further recommendations will be made. (2) Abnormal Stress Test Patient's stress test from 11/12/2023 was abnormal, and demonstrated small basal septal defect suggestive of ischemia. Will proceed with a cardiac catheterization to further assess this. Depending on results, further recommenda tions will be made.
[2023-11-14 10:31] LABS: Absolute Lymphocyte Count 2.02 X10^3/uL (0.83-4.51); Absolute Neutrophil Count 3.6 X10^3/uL (2.0-7.7); Basophil# 0.03 X10^3/uL; Basophil% 0.5 % (0-1); Eosinophil# 0.07 X10^3/uL; Eosinophils% 1.2 % (0-5); Hematocrit 40.9 % (37-47); Hemoglobin 13.1 g/dL (12.0-15.0); Lymphocyte # 2.02 X10^3/ul (0.83-4.51); Lymphocyte % 33.4 % (19-41); Mean Corpuscular Volume 87.4 fL (81-99); Mean Platelet Vol. 11.4 fl (6.2-12.0); Monocyte# 0.34 X10^3/uL; Monocyte% 5.6 % (0-10); NRBC Flagged by Analyzer 0 % (0-5); Neutrophil # 3.56 X10^3/uL (2.7-7.7); Platelet Count 208 K/mm3 (150-450); RBC Distribution Width CV 13.2 % (11.6-14.6); RBC Distribution Width SD 41.1 fl (35.1-43.9); Red Blood Count 4.68 M/mm3 (4.2-5.4)
--- NOTE | 2023-11-14 10:37 | RAD_ITS ---
STUDY: X-RAY CHEST REASON FOR EXAM: Female, 68 years old. Cardiac Catheterization TECHNIQUE: Frontal and lateral views of the chest. COMPARISON: 07/25/2023. FINDINGS: The lungs are clear and expanded. There is no demonstrated pleural abnormality. Normal size heart. Normal mediastinum and phi. Normal visualized pulmonary arteries. There is atherosclerotic tortuosity of the aortic arch and descending thoracic aorta. Normal visualized thoracic spine. Normal visualized ribs, clavicles, and shoulders. There is no demonstrated abnormality of the visualized soft tissue structures of the upper abdomen. RAD/Chest PA and Lateral IMPRESSION: No definite acute or significant abnormality seen. Electronically Signed: Jer Cox MD at 22:52 EST ,
[2023-11-14 11:38] LABS: Anion Gap 3 (5-15); BUN 13 mg/dL (7-18); BUN/Creat Ratio 17.7 RATIO (10-20); Calcium,Total 8.8 mg/dL (8.5-10.1); Chloride 110 mmol/L (98-107); Creatinine, Serum 0.73 mg/dL (0.55-1.02); EST Glomerular Filtration Rate 84 mL/min (>60); Est Glom Filt Rate - Afr Amer 102 mL/min (>60); Glucose 109 mg/dL (74-106); Potassium 3.6 mmol/L (3.5-5.1); Sodium Level 140 mmol/L (136-145)
[2023-11-26 08:14] VITALS: BMI 39.4
--- OUTSIDE RECORDS SUMMARY | 2023-11-27 08:54 | XMS RPT_ITS | CCD ---
Author Name Unknown Address [address] [place] [address] Organization [facility] Care Team Providers Care Fuselage Framer Name Role Phone KAELYN FOREMAN Consulting Unavailable ARTURO WHITFIELD JR Attending Unavailable ARTURO WHITFIELD JR Primary Care Unavailable ARTURO WHITFIELD JR Admitting Unavailable PROVIDER, UNKNOWN Consulting Unavailable PROVIDER, UNKNOWN Consulting Unavailable Kaelyn Foreman MD Primary Care Provider [phone] SEBASTIAN PIZANO Attending Unavailable KAELYN FOREMAN Primary Care Unavailable MARK SILVA Attending Unavailable KAELYN FOREMAN Primary Care Unavailable KAELYN FOREMAN Primary Care Unavailable SEBASTIAN PIZANO Attending Unavailable Allergies Allergy Classification Reported Allergen(s) Allergy Type Date of Onset Reaction(s) Facility (2 sources) Cephalexin; Translations: [CEPHALEXIN] Drug Allergy 3 Itching [facility] (2 sources) Seasonal allergy; Translations: [SEASONAL ALLERGIES] Allergy to substance 4 Itching, Other: See Comments [facility] Medications Completed/Discontinued Medications Medication Drug Class(es) Dates [...] lity 08-23-2023 16:01-0500 Body height 165.1 cm Mark Silva MD Work Phone: [facility] 08-23-2023 16:01-0500 Body temperature 96.91 [degF] Mark Silva MD Work Phone: [facility] 08-23-2023 16:01-0500 Body weight 105.05 kg Mark Silva MD Work Phone: [facility] 08-23-2023 16:01-0500 Diastolic blood pressure 82 mm[Hg] Mark Silva MD Work Phone: [facility] 08-23-2023 16:01-0500 Heart rate 80 /min Mark Silva MD Work Phone: [facility] 08-23-2023 16:01-0500 SaO2% (BldA) [Mass fraction] 98 % Mark Silva MD Work Phone: [facility] 08-23-2023 16:01-0500 Systolic blood pressure 116 mm[Hg] Mark Silva MD Work Phone: [facility] Encounters Encounter Date Encounter Type Care Provider Facility Start: 09-26-2023 End: 09-27-2023 ambulatory SEBASTIAN PIZANO Facility:[facility] Start: 08-23-2023 End: 11-18-2023 ambulatory MARK SILVA Facility:[facility] Start: 08-23-2023 End: 08-24-2023 Patient encounter procedure Mark Silva MD Work Phone: General Surgery Procedures Date Procedure Procedure Detail Performing Clinician Start: 02-04-2016 Lipid 1996 panel - S juan c or Plasma Mark Silva MD Work Phone: Plan of Treatment Date Care Activity Detail Author Start: 06-07-2023 Covid-19 Vaccine () Covid-19 Vaccine () [facility] Start: 2022 Advance Directive Discussion Advance Directive Discussion [facility] Start: 2022 Bone Density Screening Bone Density Screening [facility] Start: 2022 Pneumococcal Vaccine: 65+ (2 - PCV) Pneumococcal Vaccine: 65+ (2 - PCV) [facility] Start: 10-07-2022 Depression Assessment Depression Assessment [facility] Start: 02-03-2021 Lipid 1996 panel - Serum or Plasma Lipid Screening [facility] Start: 09-18-2016 Diabetes Screening Diabetes Screening [facility] Start: 01-05-2014 Mammography Mammogram Screening [facility] Start: 2002 Cologuard (FIT-DNA) Cologuard (FIT-DNA) [facility] Start: 2002 Colonoscopy Colonoscopy [facility] Start: 2002 Colorectal Cancer Screening Colorectal Cancer Screening [facility] Start: [address] Colonography [facility] Start: 2002 Fecal Occult Blood Fecal Occult Blood [facility] Start: 2002 Sigmoidoscopy Sigmoidoscopy [facility] Start: 1976 Urine microalbumin profile DTaP,Tdap,Td Vaccine (1 - Tdap) [facility] Start: 1975 Annual PCP Team Chronic Disease Visit Annual PCP Team Chronic Disease Visit [facility] Start: 1975 Hepatitis C Screening Hepatitis C Screening [facility] Start: 1975 HIV Screening HIV Screening [facility] End: 08-23-2024 Screening colonoscopy COLONOSCOPY SCREENING Endoscopy Routine Screening for colon cancer 1 Occurrences starting 08/23/2023 until 08/23/2024 [facility] Work Phone: Immunizations Immunization Date Immunization Notes Care Provider Fa [facility] 07-17-2023 respiratory syncytia l virus (RSV) vaccine, adjuvanted (AREXVY) Mark Silva MD Work Phone: [facility] 07-17-2023 zoster vaccine recombinant Mark Sivla MD Work Phone: [facility] 07-04-2023 influenza, seasonal, injectable Mark Silva MD Work Phone: [facility] 07-30-2022 influenza, injectabl e, quadrivalent, preservative free Mark Silva MD Work Phone: [facility] 08-07-2021 influenza, seasonal, injectable Mark Silva MD Work Phone: [facility] 06-13-2020 influenza, injectabl e, quadrivalent, preservative free Mark Silva MD Work Phone: [facility] 10-11-2018 zoster vaccine recombinant Mark Silva MD Work Phone: [facility] 01-19-2018 pneumococcal polysaccharide vaccine, 23 valent Mark Silva MD Work Phone: [facility] 01-19-2018 zoster vaccine recombinant Mark Silva MD Work Phone: [facility] 07-31-2017 influenza, seasonal, injectable Mark Silva MD Work Phone: [facility] 07-02-2013 influenza, seasonal, injectable Mark Silva MD Work Phone: [facility] Payers Date Payer Category Payer Medicare MMO MEDICARE MMO [employer] O [id number] 2022-Present [phone] [address] [place] [address] O [id number] 2022 Unknown [id number] 1955 Unknown [id number] Private Health Insurance [id number] Social History Date Type Detail Facility Start: 08-10-2011 Tobacco smoking stat us NHIS Never smoked tobacco [facility] Work Phone: Start: 08-10-2011 Tobacco use and exposure Smokeless tobacco non-user [facility] Work Phone: Start: 08-23-2023 Alcohol intake Current drinke r of alcohol (finding) [facility] Start: 08-08-2023 End: 08-23-2023 History of Social function [facility] Start: 08-08-2023 End: 08-23-2023 Tobacco use panel [facility] National Score (1-100), lower number is lower risk 47 [facility] Start: 1955 Sex Assigned At Not on file [facility] Progress note 09-26-2023 Note Date & Type Note Facility 09-26-2023 Note HNO ID: [id number] Author: Sebastian Pizano APRN.CNP Service: ? Author Type: Nurse Practitioner Type: Progress Notes Filed: 09/26/2023 2:30 PM Note Text: Safety Clothing And Equipment Developer offered: Patient declines. PESSARY FITTING NOTE Bria [...] of the vaginal canal was performed by Sebastian Pizano APRN.CNP and it was ascertained that [...] Will call pt when ring is available Sebastian Pizano APRN.CNP [facility] Progress note 08-23-2023 Note Date & Type Note Facility 08-23-2023 Note HNO ID: [id number] Author: Mark Silva MD Service: ? Author Type: Physician [...] 08/07/1980 R varicose veins S BALLOON,UTERINE ABLATION [id number] 07/2015 THYROIDECTOMY TOTAL/COMPLETE 12/30/2001 total for cancer [...] trouble, NOTES arthr (more content not included)... [facility] History of Present illness Narrative 08-23-2023 Mark Silva MD - 08/23/2023 4:14 PM EST [...] 08/07/1980 R varicose veins S BALLOON,UTERINE ABLATION [id number] 07/2015 THYROIDECTOMY TOTAL/COMPLETE 12/30/2001 total for cancer [...] will be scheduled for the procedure at [facility]. Diagnoses: (Z12.11) Screening for colon cancer [...] Medical Decision Making Level: 2 - Straightforward Mark Silva MD documented in this encounter [facility] Instructions 08-23-2023 Patient Instructions Note Date & Type Note Facility 08-23-2023 Instructions Mark Silva MD - 08/23/2023 4:09 PM EST [...] If you do not have a responsible school bus driver (family member or friend) with you [...] non-dairy creamer) Carbonated and non-carbonated soft drinks M[employer]or-A[employer] or other fruit flavored drinks Strained fruit [...] exam. 2 09/2019 documented in this encounter [facility] Nurse Note 08-23-2023 Vickie Robles LPN - [...] Vickie Robles LPN documented in this encounter [facility] Progress note 08-08-2023 Note Date & Type Note Facility 08-08-2023 Note HNO ID: [id number] Author: Sebastian Pizano APRN.COVERING MACHINE OPERATOR HELPER Service: ? Author Type: Nurse Practitioner Type: Progress Notes Filed: 08/08/2023 12:45 PM Note Text: Safety Clothing And Equipment Developer offered: Patient declines. Bria is a 67 [...] OB History No obstetric history on file. Sonography Technician History LMP: Postmenopausal Age at Menarche: Age at First : Age at Menopause: Sonography Technician History Comments: Sexual Activity: Yes; Male Contraception: [...] external genitalia normal, normal Bartholin's glands, urethra, [place]'s glands, no vulvar lesions, no cervical lesions, [...] with PCP. Sharda Reed APRN.ASHISH Pizano APRN.ASHISH [facility] Evaluation note Note Date & Type Note Facility documented in this encounter [facility] Reason for referral (narrative) Outpatient Procedure (Routine) - Pending Review Note Date & Type Note Facility Referral ID Status Reason Start Date Expiration Date Visits Requested Visits Authorized [id number] Pending Review Auto-Generat ed Referral 3 08/23/2024 1 1 [facility] Summary Purpose Family History No Family History Records FoundNo Family History Records Found Advance Directives No Advanced Directives Records FoundNo Advanced Directives Records Found Additional Source Comments INFORMATION SOURCE (unrecogn ized section and content) DATE CREATED AUTHOR AUTHOR'S ORGANIZ ATION 10/02/2023 [facility] Source Comments (unrecognize d section and content) In the event this informatio n is protected by the Federal Confidentiality of Alcohol and Drug Abuse Patient Records regulations: The Federal rules restrict any use of the information to criminally investigate or prosecute any alcohol or drug abuse patient.[facility] Reason for Visit (unrecogniz ed section and content) Specialty Diagnoses / Procedures Referred By Tony t Referred To Contact General Surgery Diagnoses Colon cancer screening Procedures CONSULT TO GENERAL SURGERY OFFICE/OUTPATIENT [facility] 60-74 MINUTES Sharda Reed APRN.COVERING MACHINE OPERATOR HELPER [address] [place] [address] Referral ID Status Reason Start Date Expiration Date V isits Requested Visits Authorized [id number] Closed PCP Requested Referral 08/08/2023 08/07/2024 1 [...] BE BASED ON THE PRIMARY CLINICAL RECORDS. [employer] provides no warranty or guarantee of the accuracy or completeness of information in this document.
--- NOTE | 2023-11-27 13:08 | CL.D_ITS ---
Patient Name: DEEPA JOHANSEN Study Date: 11/27/2023 Performing: Lien Treviño MD Ht: 65 inches 165.1 cm : 1955 Wt: 237 lbs 107.5 kg Age: 68 Gender: female BSA: 2.13 PROCEDURE(S) PERFORMED [id number])C/COR CLINICAL PROFILE AND INDICATIONS Indications: Suspected CAD, Cardiac Arrythmia Heart Failure: None Stress/Imaging Stress Test w/SPECT MPI: Yes Result: Positive Intermediate RiskStress Test with SPECT MPI: Positive Intermediate Risk Angina Classification Anginal Classification w/in 2 Weeks: No symptoms CONCLUSIONS Mild two vessel CAD RECOMMENDATIONS Risk factor modification DESCRIPTION OF PROCEDURE The patient arrived to the procedure lab. The risks and benefits of the procedure as well as a full description of our services here and current unavailability of surgical backup were fully explained to the patient and/or their significant other prior to the catheterization. The Timeout was completed, verifying the correct patient and procedure. The patient's procedural site was prepped and draped in the usual fashion. Local anesthetic was given subcutaneously to right radial region with Lidocaine 2%. Using a modified Seldinger technique, arterial access was obtained via the right radial artery, a 6Fr sheath was inserted. Left Coronary Artery selective angiography was performed in multiple views using a 5 Fr. 4.0 [place] catheter. Right Coronary Artery selective angiography was then performed in multiple views using a 5 Fr. 4.0 [place] catheter.The arterial sheath was pulled and a TR Band was applied for hemostasis. 11cc air inserted. CORONARY ANGIOGRAPHY DOMINANCE: Co- Dominant LEFT MAIN: Angiographically normal LEFT ANTERIOR DESCENDING ARTERY: LAD: Ectasia 50% Proximal lesion in LAD Luminal Irregularities 10% Mid lesion in LAD DIAGONAL 1: Tubular 20% Ostial lesion in 1st Diagonal CIRCUMFLEX ARTERY: Angiographically normal RIGHT CORONARY ARTERY: RCA: Tubular 20% Mid lesion in RCA COMPLICATIONS No Complications PROCEDURE MEDICATIONS Fentanyl 50 mcg IV Versed 1 mg IV Oxygen: 2 L/min via nasal cannula Heparin given IA 11/27/2023 12:49:19 Verapamil 2.5mg, Ntg 200mcgs, 2000 units of Heparin given IA 11/27/2023 12:49:19 SUMMARY OF HEMODYNAMIC DATA Time AIR REST ECG 08:46:35 AO 114/66 (85) SA 12:51:12 Signed By Lien Treviño MD On 11/27/2023 13:08:09 Lien Treviño MD
== END 2023-11-27 15:30 | disposition home or self-care (01) ==
PROVIDERS: Nurse Practitioner Gerontology; PCP Family Medicine; Referring Provider Internal Medicine Cardiovascular Disease; Visit Provider Internal Medicine Cardiovascular Disease
DX: I25.10 Atherosclerotic heart disease of native coronary artery without angina pectoris (principal); I47.20 Ventricular tachycardia, unspecified; R94.39 Abnormal result of other cardiovascular function study; Z85.850 Personal history of malignant neoplasm of thyroid; Z82.49 Family history of ischemic heart disease and other diseases of the circulatory system
CPT/HCPCS: 36415; 71046; 80048; 85025; 93454; 99152; 99153; J7040; Q9967; C1769; C1894

== ENCOUNTER → 2023-12-09 | Outpatient (CLI) | payer MEDICARE, SELFPAY ==
--- NOTE | 2023-12-09 08:48 | ECHOTEE_ITS ---
Reason For Study: MVP Medication ISAIAS probe 6VT-D (SN [id number]) passed without difficulty. No complications were noted. Cetacaine Topical Scarbro given X3 orally. Versed 2 mg given slow IVP. Fentanyl 50 mcg given slow IVP. Performed a rapid injection of agitated mix of 9 cc saline and 1cc air to assess for atrial septal defect. Left Ventricle Normal LV size. Left ventricular systolic function is normal. The estimated ejection fraction is 60 %. No regional wall motion abnormalities noted. Right Ventricle Normal RV size. The right ventricle is normal in size, function, and thickness. Atria Normal atrial septum. Normal left atrium. No thrombus is detected in the left atrial appendage. Normal right atrium. Mitral Valve Moderate mitral valve prolapse. Moderate mitral valve prolapse, posterior leaflet. Moderate (2+) eccentric mitral valve insufficiency. Tricuspid Valve Normal tricuspid valve. Aortic Valve Normal aortic valve. Trisinus/trileaflet aortic valve. Pulmonic Valve Normal pulmonic valve. Vessels Normal aortic root. Normal arch. The pulmonary artery is normal size. Pulmonary venous flow normal. Pericardium No pericardial effusion. ECHO/Echo Transesophageal (ISAIAS) Interpretation Summary Normal LV size. Left ventricular systolic function is normal. The estimated ejection fraction is 60 %. Moderate (2+) eccentric mitral valve insufficiency. Moderate mitral valve prolapse, posterior leaflet Ordering Physician: Lien Treviño Referring Physician: James Lauren Performed By: China Valverde RDCS
--- OUTSIDE RECORDS SUMMARY | 2023-12-09 09:11 | XMS RPT_ITS | CCD ---
Author Name Unknown Address [address] [place] [address] Organization [facility] Care Team Providers Care [employer] Name Role Phone KAELYN FOREMAN Consulting Unavailable ARTURO WHITFIELD JR Attending Unavailable ARTURO WHITFIELD JR Primary Care Unavailable ARTURO WHITFIELD JR Admitting Unavailable PROVIDER, UNKNOWN Consulting Unavailable PROVIDER, UNKNOWN Consulting Unavailable Kaelyn Foreman MD Primary Care Provider SEBASTIAN PIZANO Attending Unavailable KAELYN FOREMAN Primary Care Unavailable MARK SILVA Attending Unavailable KAELYN FOREMAN Primary Care Unavailable KAELYN FOREMAN Primary Care Unavailable SEBASTIAN PIZANO Attending Unavailable Allergies Allergy Classification Reported Allergen(s) Allergy Type Date of Onset Reaction(s) Facility (2 sources) Cephalexin; Translations: [CEPHALEXIN] Drug Allergy 3 Itching [facility] (2 sources) Seasonal allergy; Translations: [SEASONAL ALLERGIES] Allergy to substance 4 Itching, Other: See Comments [facility] Medications Completed/Discontinued Medications Medication Drug Class(es) [...] 165.1 cm Mark Silva MD Work Phone: [facility] 08-23-2023 16:01-0500 Body temperature 96.91 [degF] Mark Silva MD Work Phone: [facility] 08-23-2023 16:01-0500 Body weight 105.05 kg Mark Silva MD Work Phone: [facility] 08-23-2023 16:01-0500 Diastolic blood pressure 82 mm[Hg] Mark Silva MD Work Phone: [facility] 08-23-2023 16:01-0500 Heart rate 80 /min Mark Silva MD Work Phone: [facility] 08-23-2023 16:01-0500 SaO2% (BldA) [Mass fraction] 98 % Mark Silva MD Work Phone: [facility] 08-23-2023 16:01-0500 Systolic blood pressure 116 mm[Hg] Mark Silva MD Work Phone: [facility] Encounters Encounter Date Encounter Type Care Provider Facility Start: 09-26-2023 End: 09-27-2023 ambulatory SEBASTIAN PIZANO Facility:[facility] Start: 08-23-2023 End: 11-18-2023 ambulatory MARK SILVA Facility:[facility] Start: 08-23-2023 End: 08-24-2023 Patient encounter procedure Mark Silva MD Work Phone: General Surgery Procedures Date Procedure Procedure Detail Performing Clinician Start: 02-04-2016 Lipid 1996 panel - S juan c or Plasma Mark Silva MD Work Phone: Plan of Treatment Date Care Activity Detail Author Start: 06-07-2023 Covid-19 Vaccine () Covid-19 Vaccine () [facility] Start: 2022 Advance Directive Discussion Advance Directive Discussion [facility] Start: 2022 Bone Density Screening Bone Density Screening [facility] Start: 2022 Pneumococcal Vaccine: 65+ (2 - PCV) Pneumococcal Vaccine: 65+ (2 - PCV) [facility] Start: 10-07-2022 Depression Assessment Depression Assessment [facility] Start: 02-03-2021 Lipid 1996 panel - Serum or Plasma Lipid Screening [facility] Start: 09-18-2016 Diabetes Screening Diabetes Screening [facility] Start: 01-05-2014 Mammography Mammogram Screening [facility] Start: 2002 Cologuard (FIT-DNA) Cologuard (FIT-DNA) [facility] Start: 2002 Colonoscopy Colonoscopy [facility] Start: 2002 Colorectal Cancer Screening Colorectal Cancer Screening [facility] Start: [address] Colonography [facility] Start: 2002 Fecal Occult Blood Fecal Occult Blood [facility] Start: 2002 Sigmoidoscopy Sigmoidoscopy [facility] Start: 1976 Urine microalbumin profile DTaP,Tdap,Td Vaccine (1 - Tdap) [facility] Start: 1975 Annual PCP Team Chronic Disease Visit Annual PCP Team Chronic Disease Visit [facility] Start: 1975 Hepatitis C Screening Hepatitis C Screening [facility] Start: 1975 HIV Screening HIV Screening [facility] End: 08-23-2024 Screening colonoscopy COLONOSCOPY SCREENING Endoscopy Routine Screening for colon cancer 1 Occurrences starting 08/23/2023 until 08/23/2024 [facility] Work Phone: Immunizations Immunization Date Immunization Notes Care Provider Fa [facility] 07-17-2023 respiratory syncytia l virus (RSV) vaccine, adjuvanted (AREXVY) Mark Silva MD Work Phone: [facility] 07-17-2023 zoster vaccine recombinant Mark Silva MD Work Phone: [facility] 07-04-2023 influenza, seasonal, injectable Mark Silva MD Work Phone: [facility] 07-30-2022 influenza, injectabl e, quadrivalent, preservative free Mark Silva MD Work Phone: [facility] 08-07-2021 influenza, seasonal, injectable Mark Silva MD Work Phone: [facility] 06-13-2020 influenza, injectabl e, quadrivalent, preservative free Mark Silva MD Work Phone: [facility] 10-11-2018 zoster vaccine recombinant Mark Silva MD Work Phone: [facility] 01-19-2018 pneumococcal polysaccharide vaccine, 23 valent Mark Silva MD Work Phone: [facility] 01-19-2018 zoster vaccine recombinant Mark Silva MD Work Phone: [facility] 07-31-2017 influenza, seasonal, injectable Mark Silva MD Work Phone: [facility] 07-02-2013 influenza, seasonal, injectable Mark Silva MD Work Phone: [facility] Payers Date Payer Category Payer Medicare MMO MEDICARE MMO [employer] O [id number] 2022-Present [phone] [address] [place] [address] O [id number] 2022 Unknown [id number] 1955 Unknown [id number] Private Health Insurance [id number] Social History Date Type Detail Facility Start: 08-10-2011 Tobacco smoking stat us NHIS Never smoked tobacco [facility] Work Phone: Start: 08-10-2011 Tobacco use and exposure Smokeless tobacco non-user [facility] Work Phone: Start: 08-23-2023 Alcohol intake Current drinke r of alcohol (finding) [facility] Start: 08-08-2023 End: 08-23-2023 History of Social function [facility] Start: 08-08-2023 End: 08-23-2023 Tobacco use panel [facility] National Score (1-100), lower number is lower risk 47 [facility] Start: 1955 Sex Assigned At Not on file C [facility] Progress note 09-26-2023 Note Date & Type Note Facility 09-26-2023 Note HNO ID: [id number] Author: Sebastian Pizano APRN.CNP Service: ? Author Type: Nurse Practitioner Type: Progress Notes Filed: 09/26/2023 2:30 PM Note Text: Wood Heel Flap Rubber offered: Patient declines. PESSARY FITTING NOTE Bria [...] when ring is available Sebastian Pizano APRN.CNP [facility] Progress note 08-23-2023 Note Date & Type Note Facility 08-23-2023 Note HNO ID: [id number] Author: Mark Silva MD Service: ? Author [...] 08/07/1980 R varicose veins S BALLOON,UTERINE ABLATION [id number] 07/2015 THYROIDECTOMY TOTAL/COMPLETE 12/30/2001 total for cancer [...] trouble, NOTES arthr (more content not included)... [facility] History of Present illness Narrative 08-23-2023 Mark [...] 08/07/1980 R varicose veins S BALLOON,UTERINE ABLATION [address] 07/2015 THYROIDECTOMY TOTAL/COMPLETE 12/30/2001 total for cancer [...] will be scheduled for the procedure at [facility]. Diagnoses: (Z12.11) Screening for colon [...] Mark Silva MD documented in this encounter [facility] Instructions 08-23-2023 Patient Instructions Note Date [...] If you do not have a responsible funeral driver (family member or friend) with you [...] exam. 2 09/2019 documented in this encounter [facility] Nurse Note 08-23-2023 Vickie Robles LPN [...] Vickie Robles LPN documented in this encounter [facility] Progress note 08-08-2023 Note Date & Type Note Facility 08-08-2023 Note HNO ID: [id number] Author: Sebastian Pizano APRN.PHOTOLETTERING MACHINE OPERATOR Service: ? Author Type: Nurse Practitioner Type: Progress Notes Filed: 08/08/2023 12:45 PM Note Text: Wood Heel Flap Rubber offered: Patient declines. Bria is a 67 [...] OB History No obstetric history on file. Sample Maker Original History LMP: Postmenopausal Age at Menarche: Age at First : Age at Menopause: Sample Maker Original History Comments: Sexual Activity: Yes; Male Contraception: [...] external genitalia normal, normal Bartholin's glands, urethra, [place]'s glands, no vulvar lesions, no cervical lesions, [...] with PCP. Sharda Reed APRN.ASHISH Pizano APRN.ASHISH [facility] Evaluation note Note Date & Type Note Facility documented in this encounter [facility] Reason for referral (narrative) Outpatient Procedure (Routine) - Pending Review Note Date & Type Note Facility Referral ID Status Reason Start Date Expiration Date Visits Requested Visits Authorized [id number] Pending Review Auto-Generat ed Referral 3 08/23/2024 1 1 [facility] Summary Purpose Family History No Family History Records FoundNo Family History Records Found Advance Directives No Advanced Directives Records FoundNo Advanced Directives Records Found Additional Source Comments INFORMATION SOURCE (unrecogn ized section and content) DATE CREATED AUTHOR AUTHOR'S ORGANIZ ATION 10/02/2023 [facility] Source Comments (unrecognize d section and content) In the event this informatio n is protected by the Federal Confidentiality of Alcohol and Drug Abuse Patient Records regulations: The Federal rules restrict any use of the information to criminally investigate or prosecute any alcohol or drug abuse patient.[facility] Reason for Visit (unrecogniz ed section and content) Specialty Diagnoses / Procedures Referred By Tony t Referred To Contact General Surgery Diagnoses Colon cancer screening Procedures CONSULT TO GENERAL SURGERY OFFICE/OUTPATIENT [facility] 60-74 MINUTES Sharda Reed APRN.PHOTOLETTERING MACHINE OPERATOR [address] [place] [address] Referral ID Status Reason Start Date Expiration Date V isits Requested Visits Authorized [id number] Closed PCP Requested Referral 08/08/2023 08/07/2024 1 [...] BE BASED ON THE PRIMARY CLINICAL RECORDS. [employer] provides no warranty or guarantee of the accuracy or completeness of information in this document.
== END | disposition home or self-care (01) ==
LOC: CVS 08:48
PROVIDERS: PCP Family Medicine; Referring Provider Internal Medicine Cardiovascular Disease; Visit Provider Internal Medicine Cardiovascular Disease
DX: I34.1 Nonrheumatic mitral (valve) prolapse (principal)
CPT/HCPCS: 93312; 93320; 93325; J7040; A4216

== ENCOUNTER → 2023-12-16 | Outpatient (CLI) | payer MEDICARE, SELFPAY ==
--- NOTE | 2023-12-16 09:37 | BI_ITS ---
MAMMOGRAPHY - BILATERAL SCREENING REASON FOR EXAM: Female, 68 years old. Routine annual screening examination. PERTINENT HISTORY: Grandmother with breast cancer. TECHNIQUE: Digital bilateral breast elenita (3D mammographic acquisition) in the CC and MLO projections. 2-D mediolateral oblique (MLO) and craniocaudad (CC) views of both breasts were obtained. CAD: Full Field Digital Mammography with Computer Added Detection was performed. COMPARISON: Comparison is made with prior study dated December 13, 2022 and August 14, 2021. FINDINGS: Breast Composition: The breasts are almost entirely fatty. There are no dominant masses or suspicious calcifications. No other significant abnormalities are identified. There has been no significant change since the prior study. BI/SCRN MAMM (CAD)W/ELENITA BILAT IMPRESSION: Stable bilateral screening mammogram. Yearly follow-up mammogram recommended. (A) ASSESSMENT CATEGORY: BIRADS Category 1: Negative. A letter regarding these results will be sent to the patient by the facility within 30 days. Approximately 10% of breast cancers are not detected by mammography. A normal mammogram should not delay biopsy of a clinically suspicious abnormality. [id number] Electronically Signed: Lino Naik MD at 12:35 EDT ,
== END | disposition home or self-care (01) ==
LOC: OPBI 09:36
PROVIDERS: PCP Family Medicine; Referring Provider Nurse Practitioner Women's Health; Visit Provider Nurse Practitioner Women's Health
DX: Z12.31 Encounter for screening mammogram for malignant neoplasm of breast (principal); Z80.3 Family history of malignant neoplasm of breast
CPT/HCPCS: 77063; 77067

== ENCOUNTER → 2024-02-06 | Outpatient (CLI) | payer MEDICARE, SELFPAY ==
[2024-02-06 17:42] LABS: Absolute Lymphocyte Count 1.92 X10^3/uL (0.83-4.51); Absolute Neutrophil Count 4.8 X10^3/uL (2.0-7.7); Basophil# 0.04 X10^3/uL; Basophil% 0.5 % (0-1); Eosinophil# 0.08 X10^3/uL; Eosinophils% 1.1 % (0-5); Hematocrit 40.6 % (37-47); Lymphocyte # 1.92 X10^3/ul (0.83-4.51); Lymphocyte % 25.8 % (19-41); Mean Corpuscular Hgb 28.2 pg (27.0-32.0); Mean Corpuscular Volume 88.1 fL (81-99); Monocyte# 0.62 X10^3/uL; Monocyte% 8.3 % (0-10); NRBC Flagged by Analyzer 0 % (0-5); Neutrophil # 4.76 X10^3/uL (2.7-7.7); Platelet Count 203 K/mm3 (150-450); RBC Distribution Width CV 13.4 % (11.6-14.6); RBC Distribution Width SD 43.2 fl (35.1-43.9); Red Blood Count 4.61 M/mm3 (4.2-5.4); White Blood Count 7.4 K/mm3 (4.4-11.0)
[2024-02-06 18:23] LABS: ALB/GLOB Ratio 0.9 RATIO (0.9-2.4); AST(SGOT) 23 U/L (15-37); Alanine Aminotransfer ALT/SGPT 32 U/L (13-56); Albumin, Serum 3.4 g/dL (3.2-5.0); Alkaline Phosphatase 87 U/L (45-117); Anion Gap 5 (5-15); BUN 13 mg/dL (7-18); Calcium,Total 9.1 mg/dL (8.5-10.1); Chloride 108 mmol/L (98-107); Creatinine, Serum 0.62 mg/dL (0.55-1.02); EST Glomerular Filtration Rate 103 mL/min (>60); Est Glom Filt Rate - Afr Amer 124 mL/min (>60); Globulin 3.8 g/dL (2.2-4.2); Glucose 103 mg/dL (74-106); Lipase 43 U/L (13-75); Potassium 3.9 mmol/L (3.5-5.1); Protein, Total 7.2 g/dL (6.4-8.2); Sodium Level 140 mmol/L (136-145)
== END | disposition home or self-care (01) ==
LOC: MFPLAB 16:08
PROVIDERS: Nurse Practitioner Family; PCP Family Medicine; Visit Provider Family Medicine
DX: R10.11 Right upper quadrant pain (principal)
CPT/HCPCS: 36415; 80053; 83690; 85025

== ENCOUNTER → 2024-02-11 | Outpatient (CLI) | payer MEDICARE, SELFPAY ==
[2024-02-11 12:43] LABS: ALB/GLOB Ratio 0.9 RATIO (0.9-2.4); AST(SGOT) 23 U/L (15-37); Alanine Aminotransfer ALT/SGPT 32 U/L (13-56); Albumin, Serum 3.4 g/dL (3.2-5.0); Alkaline Phosphatase 83 U/L (45-117); Anion Gap 4 (5-15); BUN 13 mg/dL (7-18); BUN/Creat Ratio 20.4 RATIO (10-20); Calcium,Total 8.8 mg/dL (8.5-10.1); Chloride 108 mmol/L (98-107); Cholesterol 145 mg/dL (200); Creatinine, Serum 0.64 mg/dL (0.55-1.02); EST Glomerular Filtration Rate 99 mL/min (>60); Est Glom Filt Rate - Afr Amer 120 mL/min (>60); Globulin 3.6 g/dL (2.2-4.2); Glucose 96 mg/dL (74-106); High Density Lipoprotein 49 mg/dL; Potassium 4.1 mmol/L (3.5-5.1); Sodium Level 140 mmol/L (136-145); Triglycerides 151 mg/dL; Very Low Density Lipoprotein 30 mg/dL (5-40)
== END | disposition home or self-care (01) ==
LOC: BIMLAB 09:13
PROVIDERS: PCP Family Medicine; Visit Provider Internal Medicine Cardiovascular Disease
DX: E66.9 Obesity, unspecified (principal); E78.5 Hyperlipidemia, unspecified; I25.10 Atherosclerotic heart disease of native coronary artery without angina pectoris; I34.0 Nonrheumatic mitral (valve) insufficiency
CPT/HCPCS: 36415; 80053; 80061

== ENCOUNTER → 2024-02-26 | Outpatient (CLI) | payer MEDICARE, SELFPAY ==
[2024-02-26 15:11] LABS: Absolute Lymphocyte Count 2.01 X10^3/uL (0.83-4.51); Absolute Neutrophil Count 3.6 X10^3/uL (2.0-7.7); Basophil# 0.05 X10^3/uL; Basophil% 0.8 % (0-1); Eosinophils% 1.6 % (0-5); Hematocrit 41.1 % (37-47); Hemoglobin 13.2 g/dL (12.0-15.0); Lymphocyte # 2.01 X10^3/ul (0.83-4.51); Lymphocyte % 31.9 % (19-41); Mean Corp Hgb Conc 32.1 g/dL (32-36); Mean Corpuscular Hgb 28.1 pg (27.0-32.0); Mean Corpuscular Volume 87.6 fL (81-99); Mean Platelet Vol. 11.8 fl (6.2-12.0); Monocyte# 0.56 X10^3/uL; Monocyte% 8.9 % (0-10); NRBC Flagged by Analyzer 0 % (0-5); Neutrophil # 3.58 X10^3/uL (2.7-7.7); Neutrophil % 56.6 % (47-70); Platelet Count 205 K/mm3 (150-450); RBC Distribution Width CV 13.1 % (11.6-14.6); RBC Distribution Width SD 41.8 fl (35.1-43.9); Red Blood Count 4.69 M/mm3 (4.2-5.4); White Blood Count 6.3 K/mm3 (4.4-11.0)
[2024-02-26 15:49] LABS: ALB/GLOB Ratio 0.9 RATIO (0.9-2.4); AST(SGOT) 40 U/L (15-37); Alanine Aminotransfer ALT/SGPT 63 U/L (13-56); Albumin, Serum 3.3 g/dL (3.2-5.0); Alkaline Phosphatase 83 U/L (45-117); Anion Gap 6 (5-15); BUN 14 mg/dL (7-18); BUN/Creat Ratio 20.3 RATIO (10-20); Calcium,Total 8.6 mg/dL (8.5-10.1); Chloride 110 mmol/L (98-107); Creatinine, Serum 0.69 mg/dL (0.55-1.02); EST Glomerular Filtration Rate 91 mL/min (>60); Est Glom Filt Rate - Afr Amer 110 mL/min (>60); Globulin 3.8 g/dL (2.2-4.2); Glucose 108 mg/dL (74-106); Potassium 3.8 mmol/L (3.5-5.1); Protein, Total 7.1 g/dL (6.4-8.2); Sodium Level 141 mmol/L (136-145); Thyroid Stim Hormone (TSH) 0.11 uIU/mL (0.358-3.74)
[2024-02-26 17:06] LABS: Vitamin D,25 Hydroxy 62.9 ng/mL
== END | disposition home or self-care (01) ==
PROVIDERS: PCP Family Medicine; Referring Provider Family Medicine; Visit Provider Family Medicine
DX: E66.9 Obesity, unspecified (principal); E03.9 Hypothyroidism, unspecified; E55.9 Vitamin D deficiency, unspecified
CPT/HCPCS: 36415; 80053; 82306; 84439; 84443; 85025

== ENCOUNTER → 2024-06-26 | Outpatient (CLI) | payer MEDICARE, SELFPAY ==
[2024-06-26 12:45] LABS: T4 Free Direct 1.42 ng/dL (0.76-1.46); Thyroid Stim Hormone (TSH) 0.717 uIU/mL (0.358-3.740)
== END | disposition home or self-care (01) ==
LOC: BIMLAB 09:42
PROVIDERS: PCP Family Medicine; Referring Provider Nurse Practitioner Family; Visit Provider Nurse Practitioner Family
DX: E03.9 Hypothyroidism, unspecified (principal)
CPT/HCPCS: 36415; 84439; 84443

== ENCOUNTER → 2024-07-16 | Outpatient (CLI) | payer MEDICARE, SELFPAY ==
[2024-07-16 12:56] LABS: ALB/GLOB Ratio 0.9 RATIO (0.9-2.4); AST(SGOT) 22 U/L (15-37); Alanine Aminotransfer ALT/SGPT 31 U/L (13-56); Albumin, Serum 3.4 g/dL (3.2-5.0); Alkaline Phosphatase 83 U/L (45-117); Anion Gap 5 (5-15); BUN 13 mg/dL (7-18); Calcium,Total 9.1 mg/dL (8.5-10.1); Chloride 108 mmol/L (98-107); Cholesterol 152 mg/dL (200); Creatinine, Serum 0.68 mg/dL (0.55-1.02); EST Glomerular Filtration Rate 91 mL/min (>60); Est Glom Filt Rate - Afr Amer 110 mL/min (>60); Globulin 3.6 g/dL (2.2-4.2); Glucose 92 mg/dL (74-106); High Density Lipoprotein 50 mg/dL; Potassium 4.3 mmol/L (3.5-5.1); Sodium Level 140 mmol/L (136-145); Triglycerides 100 mg/dL; Very Low Density Lipoprotein 20 mg/dL (5-40)
== END | disposition home or self-care (01) ==
LOC: BIMLAB 09:47
PROVIDERS: PCP Family Medicine; Referring Provider Internal Medicine Cardiovascular Disease; Visit Provider Internal Medicine Cardiovascular Disease
DX: R94.39 Abnormal result of other cardiovascular function study (principal); I47.29 Other ventricular tachycardia; I25.10 Atherosclerotic heart disease of native coronary artery without angina pectoris; E78.5 Hyperlipidemia, unspecified; I10 Essential (primary) hypertension; I49.3 Ventricular premature depolarization
CPT/HCPCS: 36415; 80053; 80061

== ENCOUNTER → 2024-08-19 | Outpatient (CLI) | payer MEDICARE, SELFPAY ==
[2024-08-19 12:17] LABS: Absolute Lymphocyte Count 1.98 X10^3/uL (0.83-4.51); Basophil# 0.03 X10^3/uL; Basophil% 0.4 % (0-1); Eosinophil# 0.11 X10^3/uL; Eosinophils% 1.6 % (0-5); Hematocrit 41.1 % (37-47); Hemoglobin 13.2 g/dL (12.0-15.0); Lymphocyte # 1.98 X10^3/ul (0.83-4.51); Lymphocyte % 29.5 % (19-41); Mean Corp Hgb Conc 32.1 g/dL (32-36); Mean Corpuscular Hgb 28.3 pg (27.0-32.0); Mean Corpuscular Volume 88.2 fL (81-99); Mean Platelet Vol. 12.7 fl (6.2-12.0); Monocyte# 0.53 X10^3/uL; Monocyte% 7.9 % (0-10); NRBC Flagged by Analyzer 0 % (0-5); Neutrophil # 4.04 X10^3/uL (2.7-7.7); Neutrophil % 60.3 % (47-70); Platelet Count 185 K/mm3 (150-450); RBC Distribution Width CV 13.2 % (11.6-14.6); RBC Distribution Width SD 42.6 fl (35.1-43.9); Red Blood Count 4.66 M/mm3 (4.2-5.4); White Blood Count 6.7 K/mm3 (4.4-11.0)
[2024-08-19 12:34] LABS: PTHIN 53.4 pg/mL (18.4-80.1)
[2024-08-19 12:36] LABS: Vitamin D,25 Hydroxy 51.5 ng/mL
[2024-08-19 12:43] LABS: AST(SGOT) 22 U/L (15-37); Alanine Aminotransfer ALT/SGPT 33 U/L (13-56); Albumin, Serum 3.5 g/dL (3.2-5.0); Alkaline Phosphatase 85 U/L (45-117); Anion Gap 4 (5-15); BUN 13 mg/dL (7-18); BUN/Creat Ratio 19.8 RATIO (10-20); Calcium,Total 8.9 mg/dL (8.5-10.1); Chloride 109 mmol/L (98-107); Cholesterol 159 mg/dL (200); Creatinine, Serum 0.66 mg/dL (0.55-1.02); EST Glomerular Filtration Rate 95 mL/min (>60); Est Glom Filt Rate - Afr Amer 115 mL/min (>60); Globulin 3.6 g/dL (2.2-4.2); Glucose 92 mg/dL (74-106); High Density Lipoprotein 51 mg/dL; Potassium 4.4 mmol/L (3.5-5.1); Protein, Total 7.1 g/dL (6.4-8.2); Sodium Level 141 mmol/L (136-145); T4 Free Direct 1.31 ng/dL (0.76-1.46); Thyroid Stim Hormone (TSH) 0.483 uIU/mL (0.358-3.740); Triglycerides 157 mg/dL; Very Low Density Lipoprotein 31 mg/dL (5-40)
== END | disposition home or self-care (01) ==
LOC: BIMLAB 09:57
PROVIDERS: PCP Family Medicine; Referring Provider Family Medicine; Visit Provider Family Medicine
DX: E03.9 Hypothyroidism, unspecified (principal); I47.29 Other ventricular tachycardia; E21.1 Secondary hyperparathyroidism, not elsewhere classified; E55.9 Vitamin D deficiency, unspecified; M85.80 Other specified disorders of bone density and structure, unspecified site; E66.9 Obesity, unspecified
CPT/HCPCS: 36415; 80053; 80061; 82306; 83735; 83970; 84439; 84443; 85025

== ENCOUNTER → 2024-08-26 | Outpatient (CLI) | payer MEDICARE, SELFPAY ==
--- NOTE | 2024-08-26 07:59 | MRI_ITS ---
STUDY: MRI BRAIN WITH AND WITHOUT CONTRAST REASON FOR EXAM: Female, 68 years old. ANOSMIA/PAROSMIA TECHNIQUE: Standardized multiplanar fat and water weighted pulse sequences were obtained. IV 21ML CLARISCAN was administered for the contrast portion of the examination. COMPARISON: None. FINDINGS: Normal size of the ventricles and extra-axial spaces for the patient''s age. Normal white matter tracts of the supratentorial brain. There is no evidence for recent intracranial ischemia or other cause of cytotoxic edema on diffusion weighted imaging (DWI). Normal T2* images of the brain without demonstrated susceptibility artifact. There is no demonstrated hemosiderin stain. Normal bilateral basal ganglia. Normal thalami. There is no extra-axial fluid accumulation. Normal flow voids within the major intracranial circulation suggesting patency by spin echo criteria. Normal venous enhancement. There is no enhancing intra-axial or extra-axial abnormality. Normal sella turcica, pituitary gland, infundibular stalk, optic chiasm and hypothalamus. Normal tectal plate and pineal gland. Normal midbrain, chris and medulla. Normal cerebellum. Normal basal cisterns. Normal bilateral temporal bones. Normal bilateral internal auditory canals. No demonstrated orbital abnormality, within the constraints of a routine brain study. Normal visualized paranasal sinuses. Normal calvarium and skull base. Normal visualized soft tissue structures. Normal visualized upper cervical spine. MRI/Brain W/WO Contrast IMPRESSION: Normal unenhanced and enhanced MRI of the brain. Electronically Signed: Ronald Sharma MD at 13:35 EST ,
== END | disposition home or self-care (01) ==
PROVIDERS: PCP Family Medicine; Referring Provider Otolaryngology; Visit Provider Otolaryngology
DX: R43.1 Parosmia (principal)
CPT/HCPCS: 70553; A9575

== ENCOUNTER → 2024-09-17 | Outpatient (CLI) | payer MEDICARE, SELFPAY | END | disposition home or self-care (01) | LOC: PSN 10:51 | PROVIDERS: PCP Family Medicine; Referring Provider Nurse Practitioner Family; Visit Provider Nurse Practitioner Family | DX: I49.8 Other specified cardiac arrhythmias (principal); I48.0 Paroxysmal atrial fibrillation; R00.1 Bradycardia, unspecified | CPT/HCPCS: 93225; 93226 ==

== ENCOUNTER → 2024-09-22 | Outpatient (CLI) | payer MEDICARE, SELFPAY ==
[2024-09-22 13:26] LABS: T4 Free Direct 1.34 ng/dL (0.76-1.46); Thyroid Stim Hormone (TSH) 0.389 uIU/mL (0.358-3.740)
[2024-09-23 16:08] LABS: Anti-Thyroglobulin AB < 1.0 IU/mL (0.0-0.9); Thyroglobulin, Serum Qt. 0.1 ng/mL (1.5-38.5)
== END | disposition home or self-care (01) ==
LOC: BIMLAB 11:05
PROVIDERS: PCP Family Medicine; Referring Provider Internal Medicine Endocrinology, Diabetes & Metabolism; Visit Provider Internal Medicine Endocrinology, Diabetes & Metabolism
DX: E03.9 Hypothyroidism, unspecified (principal)
CPT/HCPCS: 36415; 84432; 84439; 84443; 86800

== ENCOUNTER → 2024-12-17 | Outpatient (CLI) | payer MEDICARE, SELFPAY ==
--- NOTE | 2024-12-17 09:55 | BI_ITS ---
PROCEDURE: SCRN MAMM (CAD)W/ELENITA BILAT REASON FOR EXAM: F, Age 69 y/o , SCREENING. Maternal grandmother with breast cancer. TECHNIQUE: Bilateral screening digital breast tomosynthesis with 2D and 3D images. Computer aided detection. COMPARISON: Prior exam(s) dating back to December 16, 2023.. FINDINGS: The breasts are almost entirely fatty. Stable small right axillary lymph node. Stable examination No suspicious masses, areas of developing architectural distortion, or suspicious calcifications. BI/SCRN MAMM (CAD)W/ELENITA BILAT IMPRESSION: BI-RADS 2: BENIGN. RECOMMEND ANNUAL MAMMOGRAPHIC SCREENING. Follow-up code: Routine Follow-up The patient will be notified of the results by letter. Reading Location: [id number]
== END | disposition home or self-care (01) ==
LOC: OPBI 09:53
PROVIDERS: PCP Family Medicine; Referring Provider Nurse Practitioner Family; Visit Provider Nurse Practitioner Family
DX: Z12.31 Encounter for screening mammogram for malignant neoplasm of breast (principal); Z80.3 Family history of malignant neoplasm of breast
CPT/HCPCS: 77063; 77067

== ENCOUNTER → 2025-01-18 | Outpatient (CLI) | payer MEDICARE, SELFPAY ==
[2025-01-18 12:57] LABS: Anion Gap 10 (5-15); BUN 21 mg/dL (4-19); BUN/Creat Ratio 32.5 RATIO (10-20); Calcium,Total 8.8 mg/dL (7.6-11.0); Carbon Dioxide 25.4 mmol/L (21.0-32.0); Chloride 105 mmol/L (98-108); Creatinine, Serum 0.65 mg/dL (0.70-1.20); EST Glomerular Filtration Rate 96 (>60); Glucose 93 mg/dL (70-99); Potassium 4.4 mmol/L (3.3-5.1); Sodium Level 140 mmol/L (133-145)
[2025-01-18 12:58] LABS: AST(SGOT) 23 U/L (<=31); Alanine Aminotransfer ALT/SGPT 20 U/L (<=34); Albumin, Serum 4.1 g/dL (3.4-4.8); Alkaline Phosphatase 89 U/L (35-104); Bilirubin, Direct 0.16 mg/dL (0.00-0.30); Cholesterol 145 mg/dL (<=200); Globulin 2.2 g/dL (2.2-4.2); High Density Lipoprotein 51 mg/dL; Low Density Lipoprotein Calc. 69 mg/dL; Protein, Total 6.2 g/dL (5.9-8.4); Total Bilirubin 0.37 mg/dL (0.00-1.30); Triglycerides 128 mg/dL; Very Low Density Lipoprotein 26 mg/dL (5-40); cholesterol:hdl ratio screen 2.87
== END | disposition home or self-care (01) ==
LOC: BIMLAB 11:19
PROVIDERS: Nurse Practitioner Gerontology; PCP Family Medicine; Referring Provider Internal Medicine Cardiovascular Disease; Visit Provider Internal Medicine Cardiovascular Disease
DX: E78.00 Pure hypercholesterolemia, unspecified (principal); I10 Essential (primary) hypertension
CPT/HCPCS: 36415; 80048; 80061; 80076

== ENCOUNTER → 2025-01-28 | Outpatient (CLI) | payer MEDICARE, SELFPAY ==
--- NOTE | 2025-01-28 08:45 | ECHOD_ITS ---
Reason For Study Reason For Study: MVP Procedure This was a 2D Doppler, Color Flow transthoracic echocardiogram. Exam performed in department. Left Ventricle Normal left ventricular thickness. Moderately dilated left ventricle. Mild generalized LV hypokinesis. Estimated LVEF 45 to 50%. Stage I diastolic dysfunction. Right Ventricle Normal right ventricle. Atria The left atrium is severely enlarged. Normal right atrium. Mitral Valve Significant prolapse of the posterior mitral valve leaflet. Moderate eccentric mitral valve regurgitation. Tricuspid Valve Trivial tricuspid valve insufficiency. Normal pulmonary artery pressure. Aortic Valve Trisinus/trileaflet aortic valve. Pulmonic Valve The pulmonic valve is not well visualized. Great Vessels Normal sized aortic root. Pericardium/Pleural No pericardial effusion. MMode/2D Measurements & Calculations LVIDd: 6.5 cm IVSd: 0.88 cm Ao root diam: 3.4 cm LVIDs: 4.0 cm LVPWd: 1.2 cm RVDd: 3.4 cm FS: 38.0 % LAV(MOD-bp): 98.7 ml LVAd ap4: 34.6 cm2 LVAd ap2: 36.1 cm2 LAV(MOD-bp) Indexed: 46.1 ml/m2 LVLd ap4: 8.5 cm LVLd ap2: 8.9 cm LAV(MOD-sp2): 87.5 ml EDV(MOD-sp4): 121.6 ml EDV(MOD-sp2): 126.0 ml LAV(MOD-sp4): 100.4 ml EDV(sp4-el): 119.4 ml EDV(sp2-el): 124.7 ml LVAs ap4: 22.3 cm2 LVAs ap2: 21.9 cm2 LVLs ap4: 7.6 cm LVLs ap2: 7.7 cm ESV(MOD-sp4): 55.0 ml ESV(MOD-sp2): 54.6 ml ESV(sp4-el): 55.6 ml ESV(sp2-el): 53.2 ml EF(MOD-sp4): 54.7 % EF(MOD-sp2): 56.7 % EF(sp4-el): 53.4 % SV(MOD-sp4): 66.6 ml SV(MOD-sp2): 71.4 ml SV(sp4-el): 63.8 ml SI(MOD-sp4): 31.1 ml/m2 SI(MOD-sp2): 33.3 ml/m2 LA A4 area: 31.3 cm2 LA dimension(2D): 4.8 cm RA A4 area: 17.9 cm2 TAPSE: 2.7 cm Doppler Measurements & Calculations MV E max jose: 90.5 cm/sec Lat Peak E' Jose: 6.9 cm/sec Med Peak E' Jose: 6.1 cm/sec MV A max jose: 92.1 cm/sec E/E' lat: 13.2 E/E' med: 14.9 MV E/A: 0.98 Ao V2 max: 147.2 cm/sec LV V1 max: 105.9 cm/sec PA V2 max: 96.1 cm/sec Ao max P.7 mmHg LV V1 max P.5 mmHg Ao V2 mean: 100.3 cm/sec LV V1 mean P.3 mmHg Ao mean P.6 mmHg LV V1 mean: 72.3 cm/sec Ao V2 VTI: 38.1 cm LV V1 VTI: 27.2 cm AV (velocity ratio): 0.72 TR max jose: 255.4 cm/sec TR max P.1 mmHg ECHO/Echo Complete Interpretation Summary Moderately dilated left ventricle. Mild generalized LV hypokinesis. Estimated LVEF 45 to 50%. Stage I diastolic dy sfunction. The left atrium is severely enlarged. Significant prolapse of the posterior mitral valve leaflet. Moderate eccentric mitral valve regurgitation. Ordering Physician: Lien Treviño Referring Physician: James Lauren Performed By: China Valverde RDCS
== END | disposition home or self-care (01) ==
LOC: CVS 08:44
PROVIDERS: PCP Family Medicine; Referring Provider Internal Medicine Cardiovascular Disease; Visit Provider Internal Medicine Cardiovascular Disease
DX: I34.0 Nonrheumatic mitral (valve) insufficiency (principal); R94.39 Abnormal result of other cardiovascular function study; R06.09 Other forms of dyspnea; I34.1 Nonrheumatic mitral (valve) prolapse
CPT/HCPCS: 93306

== ENCOUNTER → 2025-03-03 | Outpatient (CLI) | payer MEDICARE, SELFPAY ==
--- NOTE | 2025-03-03 14:55 | BD_ITS ---
PROCEDURE: DEXA BONE DENSITY STUDY 03/03/2025 REASON FOR EXAM: F, age 69 y/o . Postmenopausal. TECHNIQUE: DXA scan of sites with data reported below. [facility] LINKS: [facility] COMPARISON: Prior study dated December 31, 2019. FINDINGS: BMD and T-SCORES Lumbar spine: 0.923 g/cm2, T-score -1.1 Levels: L1 through L4 Change from prior: Loss of 11.6%. Left femoral neck: 0.731 g/cm2, T-score -1.1 Femoral neck comparison data not recommended for monitoring change. Left total hip: 0.874 g/cm2, T-score -0.6 Change from prior: Loss of 1.2%. Right femoral neck: 0.876 g/cm2, T-score 0.2 Femoral neck comparison data not recommended for monitoring change. Right total hip: 1.006 g/cm2, T-score 0.5 Change from prior: . The World Health Organization has defined the following categories based on bone density: Normal bone density: T-score equal to or greater than -1.0 Osteopenia: T-score between -1.0 and -2.5 Osteoporosis: T-score equal to or less than -2.5 The patient does meet the pharmacological treatment recommendations for prevention of osteoporosis. BD/Dexa Bone Density Study IMPRESSION: OSTEOPENIA. Recommend follow-up as clinically warranted. Reading Location: [id number]
== END | disposition home or self-care (01) ==
LOC: OPBD 14:52
PROVIDERS: PCP Family Medicine; Referring Provider Family Medicine; Visit Provider Family Medicine
DX: M85.80 Other specified disorders of bone density and structure, unspecified site (principal); Z78.0 Asymptomatic menopausal state
CPT/HCPCS: 77080

== ENCOUNTER → 2025-07-01 | Outpatient (CLI) | payer MEDICARE, SELFPAY ==
[2025-07-01 12:47] LABS: AST(SGOT) 23 U/L (<=31); Alanine Aminotransfer ALT/SGPT 21 U/L (<=34); Albumin, Serum 3.7 g/dL (3.4-4.8); Alkaline Phosphatase 60 U/L (35-104); Anion Gap 20 (5-15); BUN 14 mg/dL (4-19); BUN/Creat Ratio 21.1 RATIO (10-20); Bilirubin, Direct 0.12 mg/dL (0.00-0.30); Calcium,Total 8.4 mg/dL (7.6-11.0); Carbon Dioxide 16.6 mmol/L (21.0-32.0); Chloride 103 mmol/L (98-108); Cholesterol 93 mg/dL (<=200); Globulin 1.8 g/dL (2.2-4.2); Glucose 85 mg/dL (70-99); Low Density Lipoprotein Calc. 45 mg/dL; Potassium 4.7 mmol/L (3.3-5.1); Triglycerides 81 mg/dL; Very Low Density Lipoprotein 16 mg/dL (5-40); cholesterol:hdl ratio screen 2.92
== END | disposition home or self-care (01) ==
LOC: MTLAB 10:08
PROVIDERS: Nurse Practitioner Gerontology; PCP Family Medicine; Referring Provider Family Medicine; Visit Provider Family Medicine
DX: E78.00 Pure hypercholesterolemia, unspecified (principal)
CPT/HCPCS: 36415; 80048; 80061; 80076

== ENCOUNTER → 2025-08-26 | Outpatient (CLI) | payer MEDICARE, SELFPAY ==
[2025-08-26 12:16] LABS: Hematocrit 41.6 % (37-47); Hemoglobin 13.8 g/dL (12.0-15.0); Immature Granulocytes Count 0.030 X10^3/uL (0.0-0.0); Mean Corp Hgb Conc 33.2 g/dL (32-36); Mean Corpuscular Volume 88.7 fL (81-99); Mean Platelet Vol. 12.4 fl (6.2-12.0); NRBC Flagged by Analyzer 0 % (0-5); Platelet Count 187 K/mm3 (150-450); RBC Distribution Width CV 12.3 % (11.6-14.6); RBC Distribution Width SD 39.8 fl (35.1-43.9); Red Blood Count 4.69 M/mm3 (4.2-5.4); White Blood Count 6.6 K/mm3 (4.4-11.0)
[2025-08-26 12:56] LABS: AST(SGOT) 25 U/L (<=31); Alanine Aminotransfer ALT/SGPT 25 U/L (<=34); Albumin, Serum 4.2 g/dL (3.4-4.8); Alkaline Phosphatase 74 U/L (35-104); Anion Gap 10 (5-15); BUN 22 mg/dL (4-19); BUN/Creat Ratio 28.2 RATIO (10-20); Calcium,Total 9.2 mg/dL (7.6-11.0); Carbon Dioxide 26.0 mmol/L (21.0-32.0); Chloride 104 mmol/L (98-108); Globulin 2.8 g/dL (2.2-4.2); Glucose 92 mg/dL (70-99); Magnesium 2.0 mg/dL (1.5-2.2); Potassium 4.6 mmol/L (3.3-5.1); Vitamin D,25 Hydroxy 53.1 ng/mL (30-100)
== END | disposition home or self-care (01) ==
LOC: MTLAB 11:11
PROVIDERS: PCP Family Medicine; Referring Provider Family Medicine; Visit Provider Family Medicine
DX: E03.9 Hypothyroidism, unspecified (principal); I47.29 Other ventricular tachycardia; E55.9 Vitamin D deficiency, unspecified
CPT/HCPCS: 36415; 80053; 82306; 83735; 84439; 84443; 85025

== ENCOUNTER → 2025-09-06 | Outpatient (CLI) | payer MEDICARE, SELFPAY ==
--- NOTE | 2025-09-06 08:54 | ECHOD_ITS ---
Reason For Study Reason For Study: CAD/ASHD, SHORTNESS OF BREATH Procedure This was a 2D Doppler, Color Flow transthoracic echocardiogram. Myocardial strain analysis was performed in this exam to aid in the assessment of cardiac function. Exam performed in department. Left Ventricle Normal left ventricular thickness. The global longitudinal strain = -22.2 % (normal). Moderately dilated left ventricular cavity. Overall left ventricular systolic function normal. Estimated LVEF 55%. Right Ventricle Normal right ventricle. Atria The left atrium is severely enlarged. Normal right atrium. Mitral Valve Significant prolapse of the posterior mitral valve leaflet. Moderate to severe eccentric anteriorly directed mitral valve regurgitation. Tricuspid Valve Moderate (2+) tricuspid valve insufficiency. Normal pulmonary artery pressure. Aortic Valve Trisinus/trileaflet aortic valve. Pulmonic Valve The pulmonic valve is not well visualized. Great Vessels Normal sized aortic root. Pericardium/Pleural No pericardial effusion. MMode/2D Measurements & Calculations LVIDd: 6.3 cm IVSd: 0.73 cm asc Aorta Diam: 3.6 cm LVIDs: 4.7 cm LVPWd: 0.85 cm RVDd: 4.1 cm FS: 25.2 % LAV(MOD-bp): 126.0 ml LVAd ap4: 37.5 cm2 LVAd ap2: 38.7 cm2 LAV(MOD-bp) Indexed: 59.3 ml/m2 LVLd ap4: 8.6 cm LVLd ap2: 9.0 cm LAV(MOD-sp2): 118.0 ml EDV(MOD-sp4): 138.4 ml EDV(MOD-sp2): 143.0 ml LAV(MOD-sp4): 126.1 ml EDV(sp4-el): 138.8 ml EDV(sp2-el): 141.8 ml LVAs ap4: 21.7 cm2 LVAs ap2: 21.3 cm2 LVLs ap4: 7.0 cm LVLs ap2: 6.8 cm ESV(MOD-sp4): 54.7 ml ESV(MOD-sp2): 55.8 ml ESV(sp4-el): 57.3 ml ESV(sp2-el): 56.4 ml EF(MOD-sp4): 60.5 % EF(MOD-sp2): 61.0 % EF(sp4-el): 58.7 % SV(MOD-sp4): 83.7 ml SV(MOD-sp2): 87.3 ml SV(sp4-el): 81.5 ml SI(MOD-sp4): 39.4 ml/m2 SI(MOD-sp2): 41.1 ml/m2 LA A4 area: 34.6 cm2 LA dimension(2D): 5.1 cm RA A4 area: 14.8 cm2 TAPSE: 2.0 cm Time Measurements MV dec time: 0.18 sec Doppler Measurements & Calculations MV E max jose: 92.9 cm/sec Lat Peak E' Jose: 6.2 cm/sec Med Peak E' Jose: 9.3 cm/sec MV A max jose: 103.6 cm/sec E/E' lat: 15.0 E/E' med: 10.0 MV E/A: 0.90 Ao V2 max: 128.1 cm/sec LV V1 max: 88.8 cm/sec MV dec slope: 525.9 cm/sec2 Ao max P.6 mmHg LV V1 max P.2 mmHg Ao V2 mean: 90.5 cm/sec LV V1 mean P.8 mmHg Ao mean P.8 mmHg LV V1 mean: 63.3 cm/sec Ao V2 VTI: 31.0 cm LV V1 VTI: 20.2 cm AV (velocity ratio): 0.65 PA V2 max: 90.6 cm/sec TR max jose: 229.8 cm/sec TR max P.1 mmHg ECHO/Echo Complete Interpretation Summary Moderately dilated left ventricular cavity. Overall left ventricular systolic f unction normal. Estimated LVEF 55%. The left atrium is severely enlarged. Significant prolapse of the posterior mitral valve leaflet. Moderate to severe eccentric anteriorly directed mitral valve regurgitation. Moderate (2+) tricuspid valve insufficiency. Recommend ISAIAS or cardiac MRI for further evaluation of mitral valve regurgitati on and prolapse. Ordering Physician: Lien Treviño Referring Physician: James Lauren Performed By: Gayla Cardoso RDCS
== END | disposition home or self-care (01) ==
LOC: CVS 08:53
PROVIDERS: PCP Family Medicine; Referring Provider Internal Medicine Cardiovascular Disease; Visit Provider Internal Medicine Cardiovascular Disease
DX: I47.19 Other supraventricular tachycardia (principal)
CPT/HCPCS: 93306